=== PATIENT | female | born 1970 | race Caucasian/White ===

== ENCOUNTER 2018-03-19 18:20 | Inpatient (IN) | payer SELFPAY ==
[2018-03-19 18:36] VITALS: BMI 29.9
[2018-03-19] MEDS ORDERED: FAMOTIDINE 20 MG/50 ML IVPB 20 MG/50 ML MG IVPB ONE ×2 (18:38)
--- NOTE | 2018-03-19 18:45 | PDOC ---
Rapid Medical Evaluation Chief Complaint: Nausea/Vomiting Time Seen by Provider: 03/19/18 18:35 Medical Evaluation: Allergies Allergy/AdvReac Type Severity Reaction Status Date / Time aspirin Allergy Severe Swelling Verified 03/19/18 18:32 Vital Signs Temp Pulse Resp BP Pulse Ox 99.8 F H 73 18 163/90 100 03/19/18 18:32 03/19/18 18:32 03/19/18 18:32 03/19/18 18:32 03/19/18 18:32 03/19/18 18:41 I have performed a brief in-person evaluation of this patient. The patient presents with a chief complaint of: epigastric pain with nausea and vomiting for 3 days after eating in a restaurant. Patient also with diarrhea and weakness Pertinent physical exam findings: abd: moderate epigastric tenderness . no rebound or guarding I have ordered the following: CBC/CMP, HCG. ABD CT. pepcid IV The patient will proceed to the ED for further evaluation. Discharge Disposition - Diagnosis Abdominal pain Qualifiers: Abdominal location: epigastric Qualified Code(s): R10.13 - Epigastric pain - Referrals - Patient Instructions - Post Discharge Activity
[2018-03-19 19:03] LABS: BASO % 0.1 % (0-2.0); HEMATOCRIT 41.8 % (32.4-45.2); HEMOGLOBIN 13.1 GM/dL (10.7-15.3); LYMPH % 8.6 % (8-40); MCH 26.2 pg (25.7-33.7); MCHC 31.3 g/dl (32.0-36.0); MEAN CELL VOLUME 83.8 fl (80-96); MEAN PLT VOLUME 10.2 fl (7.5-11.1); MONO % 4.3 % (3.8-10.2); PLATELET COUNT 345 K/MM3 (134-434); RBC 4.99 M/mm3 (3.60-5.2); RDW 15.7 % (11.6-15.6); WHITE BLOOD COUNT 15.7 K/mm3 (4.0-10.0)
[2018-03-19 19:10] LABS: URINE APPEARANCE CLOUDY; URINE BILIRUBIN NEGATIVE (<2.0 mg/dL); URINE COLOR YELLOW; URINE GLUCOSE (UA) NEGATIVE (NEGATIVE); URINE KETONE 1+ (NEGATIVE); URINE LEUK ESTERASE NEGATIVE (NEGATIVE); URINE NITRITE NEGATIVE (NEGATIVE); URINE PROTEIN 1+ (NEGATIVE); URINE UROBILINOGEN NEGATIVE mg/dL (0.2-1.0)
[2018-03-19 19:30] LABS: EPI CELLS RARE /HPF (FEW); URINE MUCUS MANY
[2018-03-19 19:32] LABS: ALBUMIN 4.2 g/dl (3.4-5.0); ALK PHOS 72 U/L (45-117); ANION GAP 6 MMOL/L (8-16); BILIRUBIN,TOTAL 0.4 mg/dL (0.2-1); BLOOD UREA NITROGEN 14 mg/dL (7-18); CALCIUM 9.9 mg/dL (8.5-10.1); CHLORIDE 105 mmol/L (98-107); CO2 26 mmol/L (21-32); CREATININE 0.6 mg/dL (0.55-1.3); GLUCOSE,RANDOM 114 mg/dL (74-106); POTASSIUM 4.3 mmol/L (3.5-5.1); SGOT/AST 11 U/L (15-37); SGPT/ALT 19 U/L (13-61); SODIUM 137 mmol/L (136-145); TOT PROT 7.8 g/dl (6.4-8.2)
[2018-03-19] MEDS ORDERED: SODIUM CHLORIDE 0.9% 500 ML INFUS.BAG IV ONE (19:49)
[2018-03-19] MEDS ORDERED: ACETAMINOPHEN 325 MG TABLET (FP) PO ONE (19:49)
[2018-03-19 20:00] LABS: LIPASE 119 U/L (73-393)
[2018-03-19] MEDS ORDERED: ONDANSETRON 4 MG/2 ML VIAL IVPUSH ONE (20:08)
--- NOTE | 2018-03-19 20:08 | PDOC ---
History of Present Illness - General Chief Complaint: Nausea/Vomiting Stated Complaint: SICK Time Seen by Provider: 03/19/18 18:35 - History of Present Illness Initial Comments: 03/19/18 20:08 CHIEF COMPLAINT: abdominal pain, vomiting, diarrhea HISTORY OF PRESENT ILLNESS: 47 yo F with no PMH presents to ED with abdominal pain, nausea, vomiting, and diarrhea x 3 days after "eating at a restaurant." Patient reports that the pain is a "stabbing pain" to the epigastrum and is associated with vomiting (approximately 7-8 times daily after each time she eats ), with approximately 4 episodes of diarrhea daily. patient denies any hx of constipation or any rectal bleeding. Denies fever or chills. No recent travel or sick contacts. PAST MEDICAL HISTORY: Denies past medical history FAMILY HISTORY: Denies SOCIAL HISTORY: Denies tobacco, alcohol, illicit drug use. SURGICAL HISTORY: Denies ALLERGIES: aspirin REVIEW OF SYSTEMS General/Constitutional: Denies fever or chills. Denies weakness, weight change. HEENT: Denies change in vision. Denies ear pain or discharge. Denies sore throat. Cardiovascular: Denies chest pain or shortness of breath. Respiratory: Denies cough, wheezing, or hemoptysis. Gastrointestinal: Vomiting and diarrhea x 2 days. Denies constipation or rectal bleeding. Genitourinary: Denies dysuria, frequency, or change in urination. Musculoskeletal: Denies joint or muscle swelling or pain. Denies neck or back pain. Skin and breasts: Denies rash or easy bruising. Neurologic: Denies headache, vertigo, loss of consciousness, or loss of sensation. Psychiatric: Denies depression or anxiety. PHYSICAL EXAM General Appearance: Well-appearing, appropriately dressed. No apparent distress. HEENT: EOMI, PERRLA. No conjunctival pallor. No photophobia, scleral icterus. Respiratory/Chest: Lungs CTAB. Cardiovascular: RRR. S1, S2. Vascular Pulses: Dorsalis-Pedis (R): 2+, Dorsalis-Pedis (L): 2+ Gastrointestinal/Abdominal: Mild epigastric tenderness on palpation, moderate RLQ TTP. Normal bowel sounds. Abdomen soft, non-distended. No tenderness or rebound tenderness. No organomegaly, pulsatile mass, guarding, hernia, hepatomegaly, splenomegaly. Musculoskeletal/Extremities: Normal inspection. FROM of all extremities, normal capillary refill. Pelvis Stable. No CVA tenderness. No tenderness to extremities, pedal edema, swelling, erythema or deformity. Integumentary: Appropriate color, dry, warm. No cyanosis, erythema, jaundice or rash Neurologic: shank turner II-XII intact. Fully oriented, alert. Appropriate mood/affect. Motor strength 5/5. No appreciable EOM palsy, facial droop or sensory deficit. Past History - Past Medical History Allergies/Adverse Reactions: Allergies Allergy/AdvReac Type Severity Reaction Status Date / Time aspirin Allergy Severe Swelling Verified 03/19/18 18:32 Home Medications: Ambulatory Orders Nitrofurantoin Monohyd/M-Cryst [Macrobid -] 100 mg PO BID #14 capsule 03/19/18 Ondansetron HCl [Zofran] 4 mg PO QID PRN #30 tablet 03/19/18 COPD: No - Immunization History Immunization Up to Date: Yes - Suicide/Smoking/Psychosocial Hx Smoking History: Never smoked Hx Alcohol Use: No Drug/Substance Use Hx: No *Physical Exam - Vital Signs Last Vital Signs Temp Pulse Resp BP Pulse Ox 99.8 F H 73 18 163/90 100 03/19/18 18:32 03/19/18 18:32 03/19/18 18:32 03/19/18 18:32 03/19/18 18:32 ED Treatment Course - LABORATORY CBC & Chemistry Diagram: 03/19/18 18:36 03/19/18 18:36 - ADDITIONAL ORDERS Additional order review: Laboratory Results 03/19/18 03/19/18 03/19/18 18:36 18:36 18:36 Sodium 137 Potassium 4.3 Chloride 105 Carbon Dioxide 26 Anion Gap 6 L BUN 14 Creatinine 0.6 Creat Clearance w eGFR > 60 Random Glucose 114 H Calcium 9.9 Total Bilirubin 0.4 AST 11 L ALT 19 Alkaline Phosphatase 72 Total Protein 7.8 Albumin 4.2 Lipase 119 Urine Color Yellow Urine Appearance Cloudy Urine pH 5.0 Ur Specific [place] 1.025 Urine Protein 1+ H Urine Glucose (UA) Negative Urine Ketones 1+ H Urine Blood Negative Urine Nitrite Negative Urine Bilirubin Negative Urine Urobilinogen Negative Ur Leukocyte Esterase Negative Urine WBC (Auto) 12 Urine RBC (Auto) 2 Ur Epithelial Cells Rare Urine Mucus Many Urine HCG, Qual Negative 03/19/18 18:36 RBC 4.99 MCV 83.8 MCHC 31.3 L RDW 15.7 H MPV 10.2 Neutrophils % 87.0 H Lymphocytes % 8.6 Monocytes % 4.3 Eosinophils % 0.0 Basophils % 0.1 - Medications Given in the ED: ED Medications Discontinued Medications Generic Name Dose Route Start Last Admin Trade Name Freq PRN Reason Stop Dose Admin Famotidine/Sodium Chloride 20 mg in 50 mls @ 100 mls/hr 03/19/18 18:38 18:50 Pepcid 20 Mg Premixed Ivpb - IVPB 03/19/18 19:07 100 mls/hr ONCE ONE Administration Medical Decision Making - Medical Decision Making 03/19/18 21:18 47 yo F with no PMH presents to ED with abdominal pain, nausea, vomiting, and diarrhea x 3 days after "eating at a restaurant." [facility], lipase added labs unremarkable patient awaiting CT A&P with contrast ordered in [facility]. will give meds for pain control and low grade fever 03/19/18 23:12 CT suggestive of R inguinal hernia with strangulation and SBO. Surgery consult placed, awaiting CB. Patient does not have PCP, will admit to hospitalist. *DC/Admit/Observation/Transfer Diagnosis at time of Disposition: Small bowel obstruction, Inguinal hernia of right side with obstruction Abdominal pain Qualifiers: Abdominal location: epigastric Qualified Code(s): R10.13 - Epigastric pain - Discharge Dispostion Decision to Admit order: Yes - Prescriptions Prescriptions: Nitrofurantoin Monohyd/M-Cryst [Macrobid -] 100 mg PO BID #14 capsule Ondansetron HCl [Zofran] 4 mg PO QID PRN #30 tablet PRN Reason: Nausea And/Or Vomiting - Referrals - Patient Instructions - Post Discharge Activity
[2018-03-19] MEDS ORDERED: DICYCLOMINE HCL 10 MG/5 ML PO ONE (20:44)
[2018-03-19] MEDS ORDERED: ACETAMINOPHEN 500 MG TABLET (FP) PO ONE (20:47)
--- NOTE | 2018-03-19 21:00 | PDOC ---
*Physical Exam - Vital Signs Last Vital Signs Temp Pulse Resp BP Pulse Ox 99.8 F H 73 18 163/90 100 03/19/18 18:32 03/19/18 18:32 03/19/18 18:32 03/19/18 18:32 03/19/18 18:32 ED Treatment Course - LABORATORY CBC & Chemistry Diagram: 03/19/18 18:36 03/19/18 18:36 - ADDITIONAL ORDERS Additional order review: Laboratory Results 03/19/18 03/19/18 03/19/18 18:36 18:36 18:36 Sodium 137 Potassium 4.3 Chloride 105 Carbon Dioxide 26 Anion Gap 6 L BUN 14 Creatinine 0.6 Creat Clearance w eGFR > 60 Random Glucose 114 H Calcium 9.9 Total Bilirubin 0.4 AST 11 L ALT 19 Alkaline Phosphatase 72 Total Protein 7.8 Albumin 4.2 Lipase 119 Urine Color Yellow Urine Appearance Cloudy Urine pH 5.0 Ur Specific [place] 1.025 Urine Protein 1+ H Urine Glucose (UA) Negative Urine Ketones 1+ H Urine Blood Negative Urine Nitrite Negative Urine Bilirubin Negative Urine Urobilinogen Negative Ur Leukocyte Esterase Negative Urine WBC (Auto) 12 Urine RBC (Auto) 2 Ur Epithelial Cells Rare Urine Mucus Many Urine HCG, Qual Negative 03/19/18 18:36 RBC 4.99 MCV 83.8 MCHC 31.3 L RDW 15.7 H MPV 10.2 Neutrophils % 87.0 H Lymphocytes % 8.6 Monocytes % 4.3 Eosinophils % 0.0 Basophils % 0.1 - Medications Given in the ED: ED Medications Discontinued Medications Generic Name Dose Route Start Last Admin Trade Name Freq PRN Reason Stop Dose Admin Famotidine/Sodium Chloride 20 mg in 50 mls @ 100 mls/hr 03/19/18 18:38 18:50 Pepcid 20 Mg Premixed Ivpb - IVPB 03/19/18 19:07 100 mls/hr ONCE ONE Administration Medical Decision Making - Medical Decision Making 03/19/18 21:00 Pt seen by the Advanced Practice Provider under my direct supervision Pt interviewed and examined Ancillary studies reviewed I agree with plan as outlined by the Advanced Practice Provider CURLY Anna *DC/Admit/Observation/Transfer Diagnosis at time of Disposition: Abdominal pain Qualifiers: Abdominal location: epigastric Qualified Code(s): R10.13 - Epigastric pain - Prescriptions Prescriptions: Nitrofurantoin Monohyd/M-Cryst [Macrobid -] 100 mg PO BID #14 capsule Ondansetron HCl [Zofran] 4 mg PO QID PRN #30 tablet PRN Reason: Nausea And/Or Vomiting - Referrals - Patient Instructions - Post Discharge Activity
[2018-03-19] MEDS ORDERED: ACETAMINOPHEN 325 MG TABLET (FP) ONE (21:34)
[2018-03-19] MEDS ORDERED: DICYCLOMINE HCL 10 MG CAPSULE ONE (21:34)
[2018-03-19] MEDS ORDERED: ONDANSETRON 4 MG/2 ML VIAL ONE (21:34)
--- NOTE | 2018-03-19 23:57 | CONSULT ---
Consult Consult Specialty:: General Surgery Reason for Consultation:: Strangulated RIH - History of Present Illness Chief Complaint: abdominal pain and vomiting History of Present Illness: 47yo female no significant PMH presents to ED with abdominal pain, nausea, vomiting, and diarrhea x 3 days after "eating at a restaurant." Patient reports that the pain is a "stabbing pain" to the epigastrum and is associated with vomiting (approximately 7-8 times daily after each time she eats), with approximately 4 episodes of diarrhea daily. patient denies any hx of constipation or any rectal bleeding. Denies fever or chills. no previous episodes. CT scan showed strangulated right inguinal hernia. We were called to assess. - History Source History Provided By: Patient, Medical Record Limitations to Obtaining History: No Limitations - Alcohol/Substance Use Hx Alcohol Use: No - Smoking History Smoking history: Never smoked Home Medications - Allergies Allergies/Adverse Reactions: Allergies Allergy/AdvReac Type Severity Reaction Status Date / Time aspirin Allergy Severe Swelling Verified 03/19/18 18:32 - Home Medications Home Medications: Ambulatory Orders Nitrofurantoin Monohyd/M-Cryst [Macrobid -] 100 mg PO BID #14 capsule 03/19/18 Ondansetron HCl [Zofran] 4 mg PO QID PRN #30 tablet 03/19/18 Review of Systems - Review of Systems Constitutional: denies: Chills, Fever Eyes: denies: Blind Spots, Recent Change in Vision HENT: denies: Difficult Swallowing, Throat Pain Neck: denies: Decreased ROM, Lumps, Pain on Movement Cardiovascular: denies: Chest Pain, Palpitations Respiratory: denies: Cough, SOB Gastrointestinal: reports: Abdominal Pain, Nausea, Vomiting. denies: Constipation, Diarrhea Genitourinary: denies: Discharge, Dysuria Breasts: reports: No Symptoms Reported. denies: Pain Musculoskeletal: denies: Muscle Cramps, Muscle Weakness Integumentary: denies: Eczema, Erythema, Lesions, Lump Neurological: denies: Seizure, Syncope Endocrine: denies: Unexplained Weight Gain, Unexplained Weight Loss Hematology/Lymphatic: denies: Easily Bruised, Excessive Bleeding Psychiatric: denies: Anxiety, Depression Physical Exam Vital Signs: Vital Signs Temperature 99.8 F H 03/19/18 18:32 Pulse Rate 73 03/19/18 18:32 Respiratory Rate 18 03/19/18 18:32 Blood Pressure 163/90 03/19/18 18:32 O2 Sat by Pulse Oximetry (%) 100 03/19/18 18:32 Constitutional: Yes: Well Nourished, No Distress, Calm Eyes: Yes: Conjunctiva Clear, EOM Intact HENT: Yes: Atraumatic, Normocephalic Neck: Yes: Supple, Trachea Midline Cardiovascular: Yes: Regular Rate and Rhythm, S1, S2 Respiratory: Yes: Regular, CTA Bilaterally Gastrointestinal: Yes: Normal Bowel Sounds, Soft, Distention, Hernia (RIH), Tenderness (right inhuinal area). No: Tenderness, Epigastrium, Tenderness, Rebound ...Rectal Exam: Yes: Deferred Renal/: No: CVA Tenderness - Left, CVA Tenderness - Right Musculoskeletal: No: Muscle Pain, Muscle Weakness Extremities: No: Cool, Cyanosis Edema: No Peripheral Pulses WNL: Yes Integumentary: No: Jaundice, Petechiae, Pressure Ulcer, Rash Neurological: Yes: Alert, Oriented Psychiatric: Yes: Alert, Oriented Labs: CBC, BMP 03/19/18 18:36 03/19/18 18:36 Imaging - Results Cat Scan: Report Reviewed, Image Reviewed (stangulated right inguinal hernia, small intestines) Problem List - Problems (1) Strangulated inguinal hernia Assessment/Plan: 47 yo female with right inguinal hernia stangulated NPO and IVF hydration IV antibiotics OR for Exp Lap, possible bowel ressection, possible ostomy Discussed with patient risks, benefits and alternatives of aforementioned procedure, including but not limited to bleeding, infection, injury to adjacent structures, leak or injury, intraabdominal abscess, incisional hernia, need for further procedures, ; alternatives include antibiotics, delayed or no surgery - risks of this include failure of nonoperative therapy, perforation, sepsis, recurrence, . Patient desires to proceed with operation - will take to OR for above. Informed consent signed for same. Thank you for the opportunity to participate in the care of this patient. Code(s): K40.30 - UNIL INGUINAL HERNIA, W OBST, W/O GANGR, NOT SPCF RECUR (2) Abdominal pain Code(s): R10.9 - UNSPECIFIED ABDOMINAL PAIN Qualifiers: Abdominal location: epigastric Qualified Code(s): R10.13 - Epigastric pain (3) Inguinal hernia of right side with obstruction Code(s): K40.30 - UNIL INGUINAL HERNIA, W OBST, W/O GANGR, NOT SPCF RECUR (4) Small bowel obstruction Code(s): K56.609 - UNSP INTESTNL OBST, UNSP TO PARTIAL VERSUS COMPLETE OBST
[2018-03-20] MEDS ORDERED: ETOMIDATE 20 MG/10 ML AMPUL IVPUSH ONE (00:22)
[2018-03-20] MEDS ORDERED: fentaNYL CITRATE 250 MCG/5 ML VIAL ONE (00:22)
[2018-03-20] MEDS ORDERED: LIDOCAINE HCL/PF 2% SDV 5ML VIAL ONE (00:22)
[2018-03-20] MEDS ORDERED: SUCCINYLCHOLINE CHLORIDE 200 MG/10 ML VIAL ONE (00:22)
[2018-03-20] MEDS ORDERED: DEXAMETHASONE SOD PHOSPHATE 4 MG/1 ML VIAL ONE (00:22)
[2018-03-20] MEDS ORDERED: PROPOFOL 20 ML ONE (00:22)
[2018-03-20] MEDS ORDERED: ROCURONIUM BROMIDE 50 MG/5 ML VIAL ONE (00:22)
[2018-03-20] MEDS ORDERED: DESFLURANE GAS 240 ML BOTTLE IH ONE (00:28)
[2018-03-20] MEDS ORDERED: CEFOXITIN SODIUM 2 GM in DEXTROSE 5%-WATER - 100 ML IVPB SCH ×3 (02:00→10:00)
[2018-03-20] MEDS ORDERED: GLYCOPYRROLATE 0.2 MG/1 ML VIAL ONE (02:04)
[2018-03-20] MEDS ORDERED: KETOROLAC TROMETHAMINE 30 MG/1 ML VIAL ONE (02:04)
--- NOTE | 2018-03-20 02:44 | HP ---
CHIEF COMPLAINT: abdominal pain HISTORY OF PRESENT ILLNESS: 47 year old female with no past medical history presents to the hospital for 2 days of abdominal pain. She reports that she has two areas of pain = located in the epigastric region as well as the right lower quadrant. She states that the pain started after eating rice at a restaurant. Denies knowing if anyone else was sick around her after eating at that same restaurant. Reports associated subjective fevers for the past two days as well as non-bloody diarrhea. Denies chest pain, shortness of breath, nausea, vomiting, diarrhea, fevers, chills. Denies ever having a colonoscopy in the past. ER course was notable for: (1) WBC 15.9 (2) (3) Recent Travel: denies PAST MEDICAL HISTORY: denies PAST SURGICAL HISTORY: denies Social History: Smoking: denies Alcohol: denies Drugs: denies Family History: -Mother: diabetes mellitus Allergies aspirin Allergy (Severe, Verified 03/19/18 18:32) Swelling HOME MEDICATIONS: Home Medications Medication Instructions Recorded Nitrofurantoin Monohyd/M-Cryst 100 mg PO BID #14 capsule 03/19/18 [Macrobid -] Ondansetron HCl [Zofran] 4 mg PO QID PRN #30 tablet 03/19/18 REVIEW OF SYSTEMS CONSTITUTIONAL: Absent: fever, chills, diaphoresis, generalized weakness, malaise, loss of appetite, weight change HEENT: Absent: rhinorrhea, nasal congestion, throat pain, throat swelling, difficulty swallowing, mouth swelling, ear pain, eye pain, visual changes CARDIOVASCULAR: Absent: chest pain, syncope, palpitations, irregular heart rate, lightheadedness , peripheral edema RESPIRATORY: Absent: cough, shortness of breath, dyspnea with exertion, orthopnea, wheezing, stridor, hemoptysis GASTROINTESTINAL: abdominal pain, Absent: abdominal distension, nausea, vomiting, diarrhea, constipation, melena , hematochezia GENITOURINARY: Absent: dysuria, frequency, urgency, hesitancy, hematuria, flank pain, genital pain MUSCULOSKELETAL: Absent: myalgia, arthralgia, joint swelling, back pain, neck pain SKIN: Absent: rash, itching, pallor HEMATOLOGIC/IMMUNOLOGIC: Absent: easy bleeding, easy bruising, lymphadenopathy, frequent infections ENDOCRINE: Absent: unexplained weight gain, unexplained weight loss, heat intolerance, cold intolerance NEUROLOGIC: Absent: headache, focal weakness or paresthesias, dizziness, unsteady gait, seizure, mental status changes, bladder or bowel incontinence PSYCHIATRIC: Absent: anxiety, depression, suicidal or homicidal ideation, hallucinations. PHYSICAL EXAMINATION Vital Signs - 24 hr 03/19/18 03/20/18 18:32 00:46 Temperature 99.8 F H 99.8 F H Pulse Rate 73 Pulse Rate [ 74 Apical] Respiratory 18 18 Rate Blood Pressure 163/90 Blood Pressure 142/86 [Left Arm] O2 Sat by Pulse 100 100 Oximetry (%) GENERAL: A&Ox3, no acute distress EYES: PERRLA, EOMI ENT: Moist mucus membranes NECK: No JVD LUNGS: CTA, no wheezes HEART: RRR, no murmurs ABDOMEN: Soft, tender to palpation in the RLQ, bowel sounds present but slightly diminished on exam MUSCULOSKELETAL: No CVA Tenderness EXTREMITIES: 2+ pulses, no edema. NEUROLOGICAL: Cranial nerves II-XII intact. Laboratory Results - last 24 hr 03/19/18 03/19/18 03/19/18 18:36 18:36 18:36 WBC 15.7 H RBC 4.99 Hgb 13.1 Hct 41.8 MCV 83.8 MCH 26.2 MCHC 31.3 L RDW 15.7 H Plt Count 345 MPV 10.2 Absolute Neuts (auto) 13.7 H Neutrophils % 87.0 H Lymphocytes % 8.6 Monocytes % 4.3 Eosinophils % 0.0 Basophils % 0.1 Nucleated RBC % 0 Sodium 137 Potassium 4.3 Chloride 105 Carbon Dioxide 26 Anion Gap 6 L BUN 14 Creatinine 0.6 Creat Clearance w eGFR > 60 Random Glucose 114 H Lactic Acid Calcium 9.9 Total Bilirubin 0.4 AST 11 L ALT 19 Alkaline Phosphatase 72 Total Protein 7.8 Albumin 4.2 Lipase 119 Urine Color Urine Appearance Urine pH Ur Specific [place] Urine Protein Urine Glucose (UA) Urine Ketones Urine Blood Urine Nitrite Urine Bilirubin Urine Urobilinogen Ur Leukocyte Esterase Urine WBC (Auto) Urine RBC (Auto) Ur Epithelial Cells Urine Mucus Urine HCG, Qual Negative 03/19/18 03/20/18 18:36 00:36 WBC RBC Hgb Hct MCV MCH MCHC RDW Plt Count MPV Absolute Neuts (auto) Neutrophils % Lymphocytes % Monocytes % Eosinophils % Basophils % Nucleated RBC % Sodium Potassium Chloride Carbon Dioxide Anion Gap BUN Creatinine Creat Clearance w eGFR Random Glucose Lactic Acid 1.1 Calcium Total Bilirubin AST ALT Alkaline Phosphatase Total Protein Albumin Lipase Urine Color Yellow Urine Appearance Cloudy Urine pH 5.0 Ur Specific [place] 1.025 Urine Protein 1+ H Urine Glucose (UA) Negative Urine Ketones 1+ H Urine Blood Negative Urine Nitrite Negative Urine Bilirubin Negative Urine Urobilinogen Negative Ur Leukocyte Esterase Negative Urine WBC (Auto) 12 Urine RBC (Auto) 2 Ur Epithelial Cells Rare Urine Mucus Many Urine HCG, Qual ASSESSMENT/PLAN: 47 year old female with no past medical history presents to the hospital for 2 days of abdominal pain and admitted for the treatment of incarcerated and strangulated R inguinal hernia #Strangulated Inguinal Hernia: patient looks clinically benign, but CT findings reveal strangulation of bowel within right sided inguinal hernia -Dr. Hogan consulted, discussed case -patient will go to OR for emergent Exp Lap, possible bowel reesection, possible ostomy -pre-op labs -NPO -will revaluate patient after surgery -accurate I's/O's -encourage incentive spirometry after procedure #FEN -lactated ringers at 100cc/hr -lytes normal -NPO for procedure #Prophylaxis -SCDs #Disposition -admit med surg -patient will be going to surgery - will examine patient after procedure Visit type - Emergency Visit Emergency Visit: Yes ED Registration Date: 03/20/18 Care time: The patient presented to the Emergency Department on the above date and was hospitalized for further evaluation of their emergent condition. - New Patient This patient is new to me today: Yes Date on this admission: 03/20/18 - Critical Care Critical Care patient: No
--- NOTE | 2018-03-20 02:54 | OP ---
Operative Note - Note: Operative Date: 03/20/18 Pre-Operative Diagnosis: strangulated right inguinal hernia Operation: Exploratory lapatotomy, small bowel ressection, primary right inguinal hernia repair Findings: strangulated segment of small intestines. right inguinal hernia defect 2 cm, closed primarily with proline Post-Operative Diagnosis: Same as Pre-op Surgeon: Romario Hogan Anesthesiologist/ITALIAN LECTURER: Mynor Mckeon Anesthesia: General Estimated Blood Loss (mls): 20 Drains & Tubes with Location: NGT (450ml duing case) Drains, Volume Out (mls): 400 ([place] (Removed)) Fluid Volume Replaced (mls): 1,700 Operative Report Dictated: Yes
[2018-03-20] MEDS ORDERED: ONDANSETRON 4 MG/2 ML VIAL IVPUSH PRN ×2 (02:58)
[2018-03-20] MEDS ORDERED: PROMETHAZINE HCL 25 MG/1 ML VIAL IVPB PRN (02:58)
[2018-03-20] MEDS ORDERED: PROMETHAZINE HCL 25 MG/1 ML VIAL IVPUSH PRN (02:58)
[2018-03-20] MEDS ORDERED: HYDROmorphone *PCA* 10MG/50ML DISP.SYRIN PCA SCH (03:00)
[2018-03-20] MEDS: ACETAMINOPHEN 1000 MG/100 ML VIAL (NON FORMULARY) IVPB PRN (03:13)
[2018-03-20] MEDS: LACTATED RINGERS SOLUTION 1,000 ML IV SCH ×2 (03:20→21:05)
--- NOTE | 2018-03-20 03:55 | PN ---
Teaching Attending Note Name of Resident: Franklin Artis ATTENDING PHYSICIAN STATEMENT I saw and evaluated the patient. Chart, data, imaging reviewed. I reviewed the resident's note and discussed the case with the resident. I agree with the resident's findings and plan as documented. SUBJECTIVE: 47 year old female with no past medical history presents to the hospital for 2 days of abdominal pain associated with diarrhea. Was eating fried rice and pork prior to its onset. Some nausea and vomiting as well. Denied fevers. No one in family with same symptoms. OBJECTIVE: Last Vital Signs Temp Pulse Resp BP Pulse Ox 98.9 F 65 22 H 141/84 98 03/20/18 02:50 03/20/18 03:15 03/20/18 03:15 03/20/18 03:15 03/20/18 03:15 General- nad, nontoxic appearing heent- at, nc neck supple cv- s1+s2+rrr abdomen soft, no masses, right lower quadrant tenderness Ext -no pedal edema Abnormal Lab Results 03/19/18 03/19/18 03/19/18 18:36 18:36 18:36 WBC 15.7 H MCHC 31.3 L RDW 15.7 H Absolute Neuts (auto) 13.7 H Neutrophils % 87.0 H Anion Gap 6 L Random Glucose 114 H AST 11 L Urine Protein 1+ H Urine Ketones 1+ H CT of abd/pelvis reviewed- right sided strangulated inguinal hernia ASSESSMENT AND PLAN: #Strangulated Right Inguinal Hernia CT findings reveal strangulation of bowel within right sided inguinal hernia, Small bowel obstruction -Dr. Hogan consulted, discussed case -patient will go to OR emergently -NPO -send lactate -type and screen -IV fluid hydration -morphine PRN for pain control DVT ppx -scds
[2018-03-20] MEDS ORDERED: ONDANSETRON 4 MG/2 ML VIAL ONE (04:02)
[2018-03-20] MEDS: ONDANSETRON 4 MG/2 ML VIAL IVPB SCH ×3 (04:05→17:36)
[2018-03-20] MEDS: HYDROmorphone *PCA* 10MG/50ML DISP.SYRIN PCA SCH (05:26)
--- NOTE | 2018-03-20 08:34 | HOSP ---
Subjective - Review of Symptoms Subjective: c/o diffuse abdominal pain that is controlled with MANAGING EDITOR pump. denies CP, sob, fever, chills, N/V/C/D. no flatus or bleching Current Medications Generic Name Dose Route Start Last Admin Trade Name Freq PRN Reason Stop Dose Admin Acetaminophen 1,000 mg 03/20/18 03:00 03/20/18 03:13 Ofirmev Injection - IVPB 1,000 mg Q6H PRN Administration PAIN LEVEL 4 - 6 Fentanyl 50 mcg 03/20/18 02:58 Sublimaze Injection - IVPUSH 03/21/18 03:00 [id number] PRN PAIN-PACU ORDER X 4 DOSES ONLY Hydromorphone HCl 10 mg 03/20/18 03:59 03/20/18 05:26 Dilaudid Graduate Civil Engineer - MANAGING EDITOR 03/27/18 02:59 Not Given MANAGING EDITOR SCARLET Protocol Lactated Ringer's 1,000 mls @ 125 mls/hr 03/20/18 03:00 03/20/18 03:20 Lactated Ringers Solution IV 100 mls ASDIR SCARLET Administration Cefoxitin Sodium 2 gm/ 100 mls @ 200 mls/hr 03/20/18 10:00 Dextrose IVPB 03/21/18 02:59 Q8H-IV SCARLET Protocol Ondansetron HCl 8 mg 03/20/18 03:00 03/20/18 04:05 Zofran Injection IVPB 8 mg Q8H-IV SCARLET Administration Ondansetron HCl 4 mg 03/20/18 02:58 Zofran Injection IVPUSH 03/21/18 03:00 Q6H PRN NAUSEA AND/OR VOMITING Ondansetron HCl 4 mg 03/20/18 02:58 Zofran Injection IVPUSH 03/21/18 03:00 Q4H PRN NAUSEA AND/OR VOMITING Promethazine HCl 12.5 mg 03/20/18 02:58 Phenergan Injection - IVPUSH 03/21/18 03:00 Q6H PRN NAUSEA-FOR RESCUE AFTER 15 MIN Promethazine HCl 12.5 mg 03/20/18 02:58 Phenergan Injection - IVPB Q6H PRN NAUSEA AND/OR VOMITING Last Vital Signs Temp Pulse Resp BP Pulse Ox 98.3 F 78 18 119/66 98 03/20/18 05:31 03/20/18 05:31 03/20/18 05:31 03/20/18 05:31 03/20/18 05:31 General NAD CV S1 S2 RRR no murmur/rub/gallop Lungs CTA anteriorly ABdomen soft slight tender, abdominal packing down the center of the abdomen no BS Extremities no edema CBCD WBC 15.7 K/mm3 (4.0-10.0) H 03/19/18 18:36 RBC 4.99 M/mm3 (3.60-5.2) 03/19/18 18:36 Hgb 13.1 GM/dL (10.7-15.3) 03/19/18 18:36 Hct 41.8 % (32.4-45.2) 03/19/18 18:36 MCV 83.8 fl (80-96) 03/19/18 18:36 MCHC 31.3 g/dl (32.0-36.0) L 03/19/18 18:36 RDW 15.7 % (11.6-15.6) H 03/19/18 18:36 Plt Count 345 K/MM3 (134-434) 03/19/18 18:36 MPV 10.2 fl (7.5-11.1) 03/19/18 18:36 CMP Sodium 137 mmol/L (136-145) 03/19/18 18:36 Potassium 4.3 mmol/L (3.5-5.1) 03/19/18 18:36 Chloride 105 mmol/L (98-107) 03/19/18 18:36 Carbon Dioxide 26 mmol/L (21-32) 03/19/18 18:36 Anion Gap 6 MMOL/L (8-16) L 03/19/18 18:36 BUN 14 mg/dL (7-18) 03/19/18 18:36 Creatinine 0.6 mg/dL (0.55-1.3) 03/19/18 18:36 Creat Clearance w eGFR > 60 (>60) 03/19/18 18:36 Calcium 9.9 mg/dL (8.5-10.1) 03/19/18 18:36 Total Bilirubin 0.4 mg/dL (0.2-1) 03/19/18 18:36 AST 11 U/L (15-37) L 03/19/18 18:36 ALT 19 U/L (13-61) 03/19/18 18:36 Alkaline Phosphatase 72 U/L (45-117) 03/19/18 18:36 Total Protein 7.8 g/dl (6.4-8.2) 03/19/18 18:36 Albumin 4.2 g/dl (3.4-5.0) 03/19/18 18:36 A/P 47yo F wtih PMH PMH obesity presented to the ER wt abdominal pain x2 days and found to have strangulated inguinal hernia 1. Strangulated inguinal hernia- s/p exlap with small bowel resection and R inguinal hernia repair. steph-operative ABx. NGT to suction, NPO, IVF, pain control with MANAGING EDITOR pump. further recommendations per surgery. 2. Obesity- BMI 30. discussed lifestyle modifications. diet and exercise. 3. DVT ppx- will start hep sq Physical Examination Vital Signs: Vital Signs Temperature 98.3 F 03/20/18 05:31 Pulse Rate 78 03/20/18 05:31 Respiratory Rate 18 03/20/18 05:31 Blood Pressure 119/66 03/20/18 05:31 O2 Sat by Pulse Oximetry (%) 98 03/20/18 05:31
[2018-03-20 08:36] LABS: BASO % 0.1 % (0-2.0); HEMATOCRIT 33.5 % (32.4-45.2); HEMOGLOBIN 10.4 GM/dL (10.7-15.3); LYMPH % 4.5 % (8-40); MCHC 31.1 g/dl (32.0-36.0); MEAN CELL VOLUME 83.8 fl (80-96); MEAN PLT VOLUME 10.3 fl (7.5-11.1); NEUT % 87.4 % (42.8-82.8); RDW 15.6 % (11.6-15.6); WHITE BLOOD COUNT 19.4 K/mm3 (4.0-10.0)
[2018-03-20 09:11] LABS: ALBUMIN 2.9 g/dl (3.4-5.0); ALK PHOS 54 U/L (45-117); ANION GAP 9 MMOL/L (8-16); BILIRUBIN,TOTAL 0.5 mg/dL (0.2-1); BLOOD UREA NITROGEN 13 mg/dL (7-18); CALCIUM 7.9 mg/dL (8.5-10.1); CHLORIDE 108 mmol/L (98-107); CO2 23 mmol/L (21-32); CREATININE 0.5 mg/dL (0.55-1.3); GLUCOSE,RANDOM 114 mg/dL (74-106); POTASSIUM 4.1 mmol/L (3.5-5.1); SGOT/AST 43 U/L (15-37); SGPT/ALT 29 U/L (13-61); SODIUM 140 mmol/L (136-145); TOT PROT 5.6 g/dl (6.4-8.2)
[2018-03-20] MEDS ORDERED: PT OWN MED DRAWER 7, Y5N ONE ×2 (10:12→17:33)
[2018-03-20] MEDS: CEFOXITIN SODIUM 2 GM in DEXTROSE 5%-WATER - 100 ML IVPB SCH ×2 (10:35→17:59)
[2018-03-20] MEDS: HEPARIN NA (PORCINE) 5,000 UNITS/ML 1ML VIAL SQ SCH ×2 (14:22→21:05)
[2018-03-21] MEDS: HYDROmorphone *PCA* 10MG/50ML DISP.SYRIN PCA SCH ×2 (00:37→07:32)
[2018-03-21] MEDS: ONDANSETRON 4 MG/2 ML VIAL IVPB SCH ×3 (01:11→18:07)
[2018-03-21] MEDS: CEFOXITIN SODIUM 2 GM in DEXTROSE 5%-WATER - 100 ML IVPB SCH (01:38)
[2018-03-21] MEDS: LACTATED RINGERS SOLUTION 1,000 ML IV SCH ×3 (03:13→16:33)
[2018-03-21] MEDS: HEPARIN NA (PORCINE) 5,000 UNITS/ML 1ML VIAL SQ SCH ×3 (06:45→22:14)
[2018-03-21 07:55] LABS: BASO % 0.2 % (0-2.0); HEMOGLOBIN 10.1 GM/dL (10.7-15.3); LYMPH % 7.4 % (8-40); MCH 26.7 pg (25.7-33.7); MCHC 31.6 g/dl (32.0-36.0); MEAN CELL VOLUME 84.3 fl (80-96); MEAN PLT VOLUME 10.2 fl (7.5-11.1); MONO % 10.7 % (3.8-10.2); NEUT % 81.7 % (42.8-82.8); PLATELET COUNT 207 K/MM3 (134-434); RDW 15.7 % (11.6-15.6); WHITE BLOOD COUNT 13.7 K/mm3 (4.0-10.0)
--- NOTE | 2018-03-21 08:13 | PN ---
Teaching Attending Note Name of Resident: Keisha Mitchell ATTENDING PHYSICIAN STATEMENT I saw and evaluated the patient. I reviewed the resident's note and discussed the case with the resident. I agree with the resident's findings and plan as documented. SUBJECTIVE:states pain is controlled with pain medication. denies CP, SOB, fever , chills, N/V/C/D, no flatus or BM OBJECTIVE: Last Vital Signs Temp Pulse Resp BP Pulse Ox 99.1 F 85 18 119/68 90 L 03/21/18 06:00 03/21/18 06:00 03/21/18 06:00 03/21/18 06:00 03/20/18 21:00 Intake & Output 03/18/18 03/19/18 03/20/18 03/21/18 23:59 23:59 23:59 23:59 Intake Total 2625 Output Total 1100 Balance 1525 Weight 180 lb 180 lb General NAD CV S1 S2 RRR no murmur/rub/gallop Lungs CTA anteriorly Abdomen soft slightly tender. not distended hypoactive BS ASSESSMENT AND PLAN: 47yo F wtih PMH PMH obesity presented to the ER wtih abdominal pain x2 days and found to have strangulated inguinal hernia 1. Strangulated inguinal hernia- s/p exlap with small bowel resection and R inguinal hernia repair 03/20. NGT with copious bile output on suction. some hypoactive BS but no return of bowel function. will cont NGT, NPO, IVF with pain and nausea control. 2. Normocytic anemia- no signs of bleeding. Hgb is stable. check iron studies. no indication for transfusion 3. Obesity- BMI 30. discussed lifestyle modifications. diet and exercise. 4. DVT ppx- hep sq
[2018-03-21 08:19] LABS: ALBUMIN 2.6 g/dl (3.4-5.0); ALK PHOS 50 U/L (45-117); ANION GAP 6 MMOL/L (8-16); BILIRUBIN,TOTAL 0.4 mg/dL (0.2-1); BLOOD UREA NITROGEN 11 mg/dL (7-18); CALCIUM 7.8 mg/dL (8.5-10.1); CHLORIDE 104 mmol/L (98-107); CO2 27 mmol/L (21-32); CREATININE 0.5 mg/dL (0.55-1.3); GLUCOSE,RANDOM 95 mg/dL (74-106); POTASSIUM 3.8 mmol/L (3.5-5.1); SGOT/AST 13 U/L (15-37); SGPT/ALT 17 U/L (13-61); SODIUM 138 mmol/L (136-145); TOT PROT 5.4 g/dl (6.4-8.2)
[2018-03-21] MEDS ORDERED: BENZOCAINE/MENTH/CETYLPYRD CL 1 EACH LOZENGE MM ONE (12:00)
--- NOTE | 2018-03-21 12:15 | PN ---
Progress Note, Physician Chief Complaint: abdominal pain History of Present Illness: 47yo female no significant PMH presents to ED with abdominal pain, nausea, vomiting, and diarrhea x 3 days after "eating at a restaurant." She has been stable post-operatively. No complaints, walking the euceda with her daughter. - Current Medication List Current Medications: Active Medications Acetaminophen (Ofirmev Injection -) 1,000 mg IVPB Q6H PRN PRN Reason: PAIN LEVEL 4 - 6 Last Admin: 03/20/18 03:13 Dose: 1,000 mg Heparin Sodium (Porcine) (Heparin -) 5,000 unit SQ TID SCARLET Last Admin: 03/21/18 06:45 Dose: 5,000 unit Hydromorphone HCl (Dilaudid Streetcar Repairer -) 10 mg MURAL PAINTER MURAL PAINTER SCARLET; Protocol Stop: 03/27/18 02:59 Last Admin: 03/21/18 07:32 Dose: Not Given Lactated Ringer's (Lactated Ringers Solution) 1,000 mls @ 125 mls/hr IV ASDIR SCARLET Last Admin: 03/21/18 06:44 Dose: 125 mls/hr Ondansetron HCl (Zofran Injection) 8 mg IVPB Q8H-IV SCARLET Last Admin: 03/21/18 09:44 Dose: 8 mg Promethazine HCl (Phenergan Injection -) 12.5 mg IVPB Q6H PRN PRN Reason: NAUSEA AND/OR VOMITING - Objective Vital Signs: Vital Signs Temperature 99.1 F 03/21/18 10:00 Pulse Rate 85 03/21/18 10:00 Respiratory Rate 20 03/21/18 10:00 Blood Pressure 117/68 03/21/18 10:00 O2 Sat by Pulse Oximetry (%) 95 03/21/18 09:00 Vital Signs Period Temp Pulse Resp BP Sys/Wray Pulse Ox Last 24 Hr 98.2 F-99.2 F 75-92 17-20 100-177/63-68 90-95 Intake & Output 03/20/18 03/21/18 03/21/18 23:59 07:59 15:59 Intake Total 2050 Output Total 700 300 Balance 1350 -300 Intake: IV 1750 Lactated Ringers Solution 1750 1,000 ml @ 125 mls/hr IV ASDIR SCARLET Rx#: [id number] IVPB 300 Output: Gastric Drainage 100 300 Urine 600 Void 600 Other: Voiding Method Bedpan Toilet # Unmeasured Voids Void 0 Bowel Movement No No Constitutional: Yes: Well Nourished, No Distress, Calm Eyes: Yes: Conjunctiva Clear, EOM Intact HENT: Yes: Atraumatic, Normocephalic Neck: Yes: Supple, Trachea Midline Cardiovascular: Yes: Regular Rate and Rhythm, S1, S2 Respiratory: Yes: Regular, CTA Bilaterally Gastrointestinal: Yes: Normal Bowel Sounds, Soft, Abdomen, Obese, Tenderness ( incisonal) ...Rectal Exam: Yes: Deferred Genitourinary: No: CVA Tenderness - Left, CVA Tenderness - Right Musculoskeletal: No: Muscle Pain, Muscle Weakness Extremities: No: Cool, Cyanosis Edema: No Peripheral Pulses WNL: Yes Peripheral Pulses: Left Radial: 2+, Right Radial: 2+, Left Doralis Pedis: 2+, Right Dorsalis Pedis: 2+ Wound/Incision: Yes: Clean/Dry, Well Approximated, Dressing Dry and Intact Neurological: Yes: Alert, Oriented Psychiatric: Yes: Alert, Oriented Labs: CBC, BMP 03/21/18 07:00 03/21/18 07:00 Problem List - Problems (1) Strangulated inguinal hernia Assessment/Plan: 47 yo female with right inguinal hernia stangulated POD#1 s/p Exploratory laparotomy, segmental ressection of small bowel and primary repair of right inguinal hernia. leukocytosis is resolving. NPO and IVF hydration continue NGT deomcompression adequate analgesia Ambulate/ OOB encoruage IS Local wound care Code(s): K40.30 - UNIL INGUINAL HERNIA, W OBST, W/O GANGR, NOT SPCF RECUR (2) Abdominal pain Code(s): R10.9 - UNSPECIFIED ABDOMINAL PAIN Qualifiers: Abdominal location: epigastric Qualified Code(s): R10.13 - Epigastric pain (3) Inguinal hernia of right side with obstruction Code(s): K40.30 - UNIL INGUINAL HERNIA, W OBST, W/O GANGR, NOT SPCF RECUR (4) Small bowel obstruction Code(s): K56.609 - UNSP INTESTNL OBST, UNSP TO PARTIAL VERSUS COMPLETE OBST
--- NOTE | 2018-03-21 12:55 | PN ---
Progress Note (short form) - Note Progress Note: ANESTHESIOLOGY 47F s/p ex-lap SBR and right IHR under general anesthesia POD #1. No acute complaints. Pain 5/10 and tolerable with DUPLICATING MACHINE SERVICER. NPO with NGT in place. Denies N/V. Vital Signs Temperature 99.1 F 03/21/18 10:00 Pulse Rate 85 03/21/18 10:00 Respiratory Rate 20 03/21/18 10:00 Blood Pressure 117/68 03/21/18 10:00 O2 Sat by Pulse Oximetry (%) 95 03/21/18 09:00 Active Medications Acetaminophen (Ofirmev Injection -) 1,000 mg IVPB Q6H PRN PRN Reason: PAIN LEVEL 4 - 6 Last Admin: 03/20/18 03:13 Dose: 1,000 mg Heparin Sodium (Porcine) (Heparin -) 5,000 unit SQ TID SCARLET Last Admin: 03/21/18 06:45 Dose: 5,000 unit Hydromorphone HCl (Dilaudid Laborer [employer] House -) 10 mg DUPLICATING MACHINE SERVICER DUPLICATING MACHINE SERVICER SCARLET; Protocol Stop: 03/27/18 02:59 Last Admin: 03/21/18 07:32 Dose: Not Given Lactated Ringer's (Lactated Ringers Solution) 1,000 mls @ 125 mls/hr IV ASDIR SCARLET Last Admin: 03/21/18 06:44 Dose: 125 mls/hr Ondansetron HCl (Zofran Injection) 8 mg IVPB Q8H-IV SCARLET Last Admin: 03/21/18 09:44 Dose: 8 mg Promethazine HCl (Phenergan Injection -) 12.5 mg IVPB Q6H PRN PRN Reason: NAUSEA AND/OR VOMITING Gen: awake, alert , NAD No apparent anesthesia complications. Continue DUPLICATING MACHINE SERVICER until tolerating PO diet.
--- NOTE | 2018-03-21 13:52 | PN ---
Physical Exam: SUBJECTIVE: No acute events overnight. Pt reports pain controlled with NEPHROLOGIST pump and pressing button only when pain becomes intolerable. Pt denies any belching or flatus at this point. POD#1 into 2 OBJECTIVE: Vital Signs Period Temp Pulse Resp BP Sys/Wray Pulse Ox Last 24 Hr 98.2 F-99.2 F 75-92 17-20 100-177/63-68 90-95 GENERAL: The patient is awake, alert, and fully oriented, in no acute distress. HEENT: EOMI, FACUNDO, sclera anicteric, NGT draining bilious fluid (100cc currently in cannister at time of visit) NECK: No JVD LUNGS: CTA bilaterally, no wheezes, no crackles, no accessory muscle use. HEART: RRR, S1, S2 without murmur ABDOMEN: Soft, nondistended, slightly tender around surgical site, site with overlying clean bandage; no drainage or erythema noted, hypoactive BS, no guarding. EXTREMITIES: 2+ pulses, warm, well-perfused, no edema. PSYCH: Normal mood, normal affect. SKIN: Warm, dry, no rashes noted Laboratory Results - last 24 hr 03/21/18 03/21/18 07:00 07:00 WBC 13.7 H RBC 3.80 Hgb 10.1 L Hct 32.0 L MCV 84.3 MCH 26.7 MCHC 31.6 L RDW 15.7 H Plt Count 207 D MPV 10.2 Absolute Neuts (auto) 11.2 H Neutrophils % 81.7 Lymphocytes % 7.4 L D Monocytes % 10.7 H Eosinophils % 0.0 Basophils % 0.2 Nucleated RBC % 0 Sodium 138 Potassium 3.8 Chloride 104 Carbon Dioxide 27 Anion Gap 6 L BUN 11 Creatinine 0.5 L Creat Clearance w eGFR > 60 Random Glucose 95 Calcium 7.8 L Total Bilirubin 0.4 AST 13 L ALT 17 Alkaline Phosphatase 50 Total Protein 5.4 L Albumin 2.6 L Active Medications Generic Name Dose Route Start Last Admin Trade Name Freq PRN Reason Stop Dose Admin Acetaminophen 1,000 mg 03/20/18 03:00 03/20/18 03:13 Ofirmev Injection - IVPB 1,000 mg Q6H PRN Administration PAIN LEVEL 4 - 6 Heparin Sodium (Porcine) 5,000 unit 03/20/18 14:00 03/21/18 06:45 Heparin - SQ 5,000 unit TID SCARLET Administration Hydromorphone HCl 10 mg 03/20/18 03:59 03/21/18 07:32 Dilaudid Neon Tube Pumper - NEPHROLOGIST 03/27/18 02:59 Not Given NEPHROLOGIST SCARLET Protocol Lactated Ringer's 1,000 mls @ 125 mls/hr 03/20/18 03:00 03/21/18 06:44 Lactated Ringers Solution IV 125 mls/hr ASDIR SCARLET Administration Ondansetron HCl 8 mg 03/20/18 03:00 03/21/18 09:44 Zofran Injection IVPB 8 mg Q8H-IV SCARLET Administration Promethazine HCl 12.5 mg 03/20/18 02:58 Phenergan Injection - IVPB Q6H PRN NAUSEA AND/OR VOMITING ASSESSMENT/PLAN: 1) R Inguinal Hernia, strangulated --POD 1 into 2 s/p Exlap, small bowel resection and primary anastomosis. --Continue to have large amount of bile output from NGT; to continue on suction --NPO --Continue NEPHROLOGIST until bowel function per anesthesia --LR @ 125cc/hr to continue --Zofran and Phenergan for nausea control --Surgery on board; appreciate recommendations 2) Normocytic anemia --no active signs of bleeding --Iron studies ordered --H/H stable from yesterday --Monitor FEN: Fluids: LR @125cc/hr Electrolyte abnormalities: None currently Nutrition: NPO PPX: DVT - Heparin SQ dispo: Continue m/s floor monitoring Case discussed with Dr. John Rasmussen, DO - IM PGY-2 Visit type - Emergency Visit Emergency Visit: Yes ED Registration Date: 03/20/18 Care time: The patient presented to the Emergency Department on the above date and was hospitalized for further evaluation of their emergent condition. - New Patient This patient is new to me today: No - Critical Care Critical Care patient: No
[2018-03-22] MEDS: LACTATED RINGERS SOLUTION 1,000 ML IV SCH ×3 (01:04→10:12)
[2018-03-22] MEDS: ONDANSETRON 4 MG/2 ML VIAL IVPB SCH ×3 (02:38→18:26)
[2018-03-22] MEDS: HEPARIN NA (PORCINE) 5,000 UNITS/ML 1ML VIAL SQ SCH ×3 (06:15→21:24)
[2018-03-22 07:18] LABS: HEMATOCRIT 29.1 % (32.4-45.2); HEMOGLOBIN 9.3 GM/dL (10.7-15.3); MCH 26.9 pg (25.7-33.7); MEAN CELL VOLUME 83.9 fl (80-96); MEAN PLT VOLUME 10.1 fl (7.5-11.1); PLATELET COUNT 189 K/MM3 (134-434); RBC 3.47 M/mm3 (3.60-5.2); RDW 15.6 % (11.6-15.6); WHITE BLOOD COUNT 11.2 K/mm3 (4.0-10.0)
[2018-03-22 07:44] LABS: ANION GAP 6 MMOL/L (8-16); BLOOD UREA NITROGEN 12 mg/dL (7-18); CALCIUM 7.7 mg/dL (8.5-10.1); CHLORIDE 104 mmol/L (98-107); CO2 29 mmol/L (21-32); CREATININE 0.3 mg/dL (0.55-1.3); GLUCOSE,RANDOM 88 mg/dL (74-106); MAGNESIUM 2.2 mg/dL (1.8-2.4); PHOSPHOROUS 2.6 mg/dL (2.5-4.9); POTASSIUM 3.6 mmol/L (3.5-5.1); SODIUM 139 mmol/L (136-145)
[2018-03-22] MEDS: HYDROmorphone *PCA* 10MG/50ML DISP.SYRIN PCA SCH (08:58)
--- NOTE | 2018-03-22 09:28 | PN ---
Physical Exam: SUBJECTIVE: Patient seen and examined at bedside. No acute events overnight. Patient states she is feeling well with minimal pain and minimal use of the HISTORIC INTERPRETER pump. She is having slight some slight nausea but the Zofran is helping her.She has not passed flatus yet, however is having occasional burps. She is still putting out bile from the NGT. The surgical PA came this am to check and change dressing- it is clean,dry,intact. She denies any CP, SOB, vomiting, headache or fevers. OBJECTIVE: Vital Signs Period Temp Pulse Resp BP Sys/Wray Pulse Ox Last 24 Hr 98.6 F-99.1 F 76-85 18-20 117-137/68-80 97 GENERAL: The patient is awake, alert, and fully oriented, in no acute distress.. LUNGS:CTA B/L; no rales, rhonchi or wheezing. HEART: Regular rate and rhythm, S1, S2 without murmur, rub or gallop. ABDOMEN: Soft, nontender, nondistended, normoactive bowel sounds, surgical dressing is cleean/dry/intact EXTREMITIES: 2+ pulses, warm, well-perfused, no edema. PSYCH: Normal mood, normal affect. SKIN: Warm, dry, normal turgor, no rashes or lesions noted Laboratory Results - last 24 hr 03/22/18 03/22/18 06:30 06:30 WBC 11.2 H RBC 3.47 L Hgb 9.3 L Hct 29.1 L MCV 83.9 MCH 26.9 MCHC 32.0 RDW 15.6 Plt Count 189 MPV 10.1 Sodium 139 Potassium 3.6 Chloride 104 Carbon Dioxide 29 Anion Gap 6 L BUN 12 Creatinine 0.3 L Creat Clearance w eGFR > 60 Random Glucose 88 Calcium 7.7 L Phosphorus 2.6 Magnesium 2.2 Ferritin 60.1 Active Medications Generic Name Dose Route Start Last Admin Trade Name Freq PRN Reason Stop Dose Admin Acetaminophen 1,000 mg 03/20/18 03:00 03/20/18 03:13 Ofirmev Injection - IVPB 1,000 mg Q6H PRN Administration PAIN LEVEL 4 - 6 Heparin Sodium (Porcine) 5,000 unit 03/20/18 14:00 03/22/18 06:15 Heparin - SQ 5,000 unit TID SCARLET Administration Hydromorphone HCl 10 mg 03/20/18 03:59 03/22/18 08:58 Dilaudid Combatant Diver Officer - HISTORIC INTERPRETER 03/27/18 02:59 Not Given HISTORIC INTERPRETER SCARLET Protocol Lactated Ringer's 1,000 mls @ 125 mls/hr 03/20/18 03:00 03/22/18 08:58 Lactated Ringers Solution IV Not Given ASDIR SCARLET Ondansetron HCl 8 mg 03/20/18 03:00 03/22/18 02:38 Zofran Injection IVPB 8 mg Q8H-IV SCARLET Administration Promethazine HCl 12.5 mg 03/20/18 02:58 Phenergan Injection - IVPB Q6H PRN NAUSEA AND/OR VOMITING ASSESSMENT/PLAN: 1) R Inguinal Hernia, --POD 2 s/p Exlap, small bowel resection --NPO as patient has not passed flatus yet --Continue HISTORIC INTERPRETER until bowel function per anesthesia --LR @ 125cc/hr to continue --Zofran and Phenergan for nausea control --Surgery on board; appreciate recommendations 2) Normocytic anemia --no active signs of bleeding --Hgb remains stable -monitor for signs of bleeding FEN: Fluids: LR @125cc/hr Electrolyte abnormalities: None currently Nutrition: NPO PPX: DVT - Heparin SQ Problem List - Problems (1) Inguinal hernia of right side with obstruction Code(s): K40.30 - UNIL INGUINAL HERNIA, W OBST, W/O GANGR, NOT SPCF RECUR (2) Strangulated inguinal hernia Code(s): K40.30 - UNIL INGUINAL HERNIA, W OBST, W/O GANGR, NOT SPCF RECUR Visit type - Emergency Visit Emergency Visit: Yes ED Registration Date: 03/20/18 Care time: The patient presented to the Emergency Department on the above date and was hospitalized for further evaluation of their emergent condition. - New Patient This patient is new to me today: Yes Date on this admission: 03/22/18 - Critical Care Critical Care patient: No
--- NOTE | 2018-03-22 11:02 | PN ---
Progress Note, Physician Chief Complaint: abdominal pain History of Present Illness: 47yo female no significant PMH presents to ED with abdominal pain, nausea, vomiting, and diarrhea x 3 days after "eating at a restaurant." She has been stable post-operatively. No complaints, walking the euceda with her daughter. low grade fever. - Current Medication List Current Medications: Active Medications Acetaminophen (Ofirmev Injection -) 1,000 mg IVPB Q6H PRN PRN Reason: PAIN LEVEL 4 - 6 Last Admin: 03/20/18 03:13 Dose: 1,000 mg Heparin Sodium (Porcine) (Heparin -) 5,000 unit SQ TID SCARLET Last Admin: 03/22/18 06:15 Dose: 5,000 unit Hydromorphone HCl (Dilaudid Claims Technician -) 10 mg DONOR RECRUITMENT MANAGER DONOR RECRUITMENT MANAGER [facility]; Protocol Stop: 03/27/18 02:59 Last Admin: 03/22/18 08:58 Dose: Not Given Lactated Ringer's (Lactated Ringers Solution) 1,000 mls @ 125 mls/hr IV ASDIR SCARLET Last Admin: 03/22/18 10:12 Dose: 125 mls/hr Ondansetron HCl (Zofran Injection) 8 mg IVPB Q8H-IV SCARLET Last Admin: 03/22/18 10:13 Dose: 8 mg Promethazine HCl (Phenergan Injection -) 12.5 mg IVPB Q6H PRN PRN Reason: NAUSEA AND/OR VOMITING - Objective Vital Signs: Vital Signs Temperature 98.6 F 03/22/18 06:00 Pulse Rate 82 03/22/18 06:00 Respiratory Rate 18 03/22/18 06:00 Blood Pressure 130/74 03/22/18 06:00 O2 Sat by Pulse Oximetry (%) 97 03/21/18 21:00 Vital Signs Period Temp Pulse Resp BP Sys/Wray Pulse Ox Last 24 Hr 98.6 F-99 F 76-82 -18 118-137/70-80 97 Intake & Output 03/21/18 03/22/18 03/22/18 23:59 07:59 15:59 Intake Total 1975 Output Total 400 Balance 1575 Intake: IV 1875 Lactated Ringers Solution 1875 1,000 ml @ 125 mls/hr IV ASDIR SCARLET Rx#: [id number] IVPB 100 Output: Gastric Drainage 400 60? Other: Voiding Method Toilet Bowel Movement No # Bowel Movements 0 Constitutional: Yes: Well Nourished, No Distress, Calm, Obese Eyes: Yes: Conjunctiva Clear, EOM Intact HENT: Yes: Atraumatic, Normocephalic Neck: Yes: Supple, Trachea Midline Cardiovascular: Yes: Regular Rate and Rhythm, S1, S2 Respiratory: Yes: Regular, CTA Bilaterally Gastrointestinal: Yes: Normal Bowel Sounds, Soft, Abdomen, Obese, Tenderness ( incisional) ...Rectal Exam: Yes: Deferred Genitourinary: No: CVA Tenderness - Left Musculoskeletal: No: Muscle Pain, Muscle Weakness Extremities: No: Cool, Cyanosis Edema: No Peripheral Pulses WNL: Yes Peripheral Pulses: Left Radial: 2+, Right Radial: 2+, Left Doralis Pedis: 2+, Right Dorsalis Pedis: 2+ Integumentary: No: Jaundice, Rash Wound/Incision: Yes: Clean/Dry, Well Approximated, Karolina Intact, Open to air Neurological: Yes: Alert, Oriented Psychiatric: Yes: Alert, Oriented Labs: CBC, BMP 03/22/18 06:30 03/22/18 06:30 Problem List - Problems (1) Strangulated inguinal hernia Assessment/Plan: 47 yo female with right inguinal hernia stangulated POD#2 s/p Exploratory laparotomy, segmental ressection of small bowel and primary repair of right inguinal hernia. leukocytosis is resolving. NGT is scant output per shift. NPO and IVF hydration continue NGT decompression adequate analgesia Ambulate/ OOB encoruage IS repeat CBC will follow Code(s): K40.30 - UNIL INGUINAL HERNIA, W OBST, W/O GANGR, NOT SPCF RECUR (2) Abdominal pain Code(s): R10.9 - UNSPECIFIED ABDOMINAL PAIN Qualifiers: Abdominal location: epigastric Qualified Code(s): R10.13 - Epigastric pain (3) Inguinal hernia of right side with obstruction Code(s): K40.30 - UNIL INGUINAL HERNIA, W OBST, W/O GANGR, NOT SPCF RECUR (4) Small bowel obstruction Code(s): K56.609 - UNSP INTESTNL OBST, UNSP TO PARTIAL VERSUS COMPLETE OBST
--- NOTE | 2018-03-22 13:19 | PN ---
Teaching Attending Note Name of Resident: Marycruz Mendiola ATTENDING PHYSICIAN STATEMENT I saw and evaluated the patient. I reviewed the resident's note and discussed the case with the resident. I agree with the resident's findings and plan as documented. SUBJECTIVE:states she has urge to pass gas but has not yet. ambulating without difficulty. pain is controlled. denies Cp, SOB, fever, chills, N/V OBJECTIVE: Last Vital Signs Temp Pulse Resp BP Pulse Ox 98.6 F 82 18 130/74 97 03/22/18 06:00 03/22/18 06:00 03/22/18 06:00 03/22/18 06:00 03/21/18 21:00 Intake & Output 03/19/18 03/20/18 03/21/18 03/22/18 23:59 23:59 23:59 23:59 Intake Total 4325 1975 Output Total 1400 700 Balance 2925 1275 Weight 180 lb 180 lb General NAD CV S1 S2 RRR no murmur/rub/gallop Lungs CTA anteriorly Abdomen soft slightly tender. not distended. no BS ASSESSMENT AND PLAN: 47yo F wtih PMH PMH obesity presented to the ER wt abdominal pain x2 days and found to have strangulated inguinal hernia 1. Strangulated inguinal hernia- s/p exlap with small bowel resection and R inguinal hernia repair 03/20. NGT still to suction, decreased output. no return of bowel function. cont NPO, NGT to suction, IVF pain and nausea control. encrouage OOB to chair. surgery on board 2. Normocytic anemia- no signs of bleeding. Hgb is stable. iron studies pending. no indication for transfusion 3. Obesity- BMI 30. discussed lifestyle modifications. diet and exercise. 4. DVT ppx- hep sq 5. spoke with daughter present at bedside. all questions answered. verbalized understanding and agreement
[2018-03-22] MEDS ORDERED: oxyCODONE HCL 5 MG TABLET PO PRN (15:19)
--- NOTE | 2018-03-22 15:22 | PN ---
Progress Note (short form) - Note Progress Note: Patient stable and c/o pain score of 2-3/10.So will dc ground systems engineer and put patient on prn pain medication.Katherine sanderson anesthesia related problem.Patient Dc from the anesthesia care.
[2018-03-23] MEDS: ONDANSETRON 4 MG/2 ML VIAL IVPB SCH ×3 (02:01→17:24)
[2018-03-23] MEDS: LACTATED RINGERS SOLUTION 1,000 ML IV SCH (04:17)
[2018-03-23 06:07] LABS: HEMOGLOBIN 9.4 GM/dL (10.7-15.3); MCH 27.1 pg (25.7-33.7); MCHC 32.4 g/dl (32.0-36.0); MEAN CELL VOLUME 83.7 fl (80-96); MEAN PLT VOLUME 9.9 fl (7.5-11.1); PLATELET COUNT 206 K/MM3 (134-434); RBC 3.46 M/mm3 (3.60-5.2); RDW 15.2 % (11.6-15.6); WHITE BLOOD COUNT 9.1 K/mm3 (4.0-10.0)
[2018-03-23 06:09] LABS: SERUM IRON SATURATION 5 % (15-55); TOTAL IRON BINDING CAPACITY 203 ug/dL (250-450); UIBC 193 ug/dL (131-425)
[2018-03-23 06:41] LABS: ANION GAP 8 MMOL/L (8-16); BLOOD UREA NITROGEN 9 mg/dL (7-18); CALCIUM 7.3 mg/dL (8.5-10.1); CHLORIDE 104 mmol/L (98-107); CO2 31 mmol/L (21-32); CREATININE 0.3 mg/dL (0.55-1.3); GLUCOSE,RANDOM 101 mg/dL (74-106); MAGNESIUM 2.1 mg/dL (1.8-2.4); PHOSPHOROUS 2.2 mg/dL (2.5-4.9); POTASSIUM 3.4 mmol/L (3.5-5.1); SODIUM 142 mmol/L (136-145)
[2018-03-23] MEDS: HEPARIN NA (PORCINE) 5,000 UNITS/ML 1ML VIAL SQ SCH ×3 (06:53→21:38)
[2018-03-23] MEDS: D5-1/2NS+10 MEQ KCL - 10 MEQ/1,000 ML INFUS.BAG IV SCH ×2 (08:12→23:50)
[2018-03-23] MEDS ORDERED: PT OWN MED DRAWER 7, Y5N ONE (11:14)
[2018-03-23] MEDS: HYDROmorphone HCl 2 MG/ML VIAL IVPB PRN ×2 (11:18→20:50)
--- NOTE | 2018-03-23 11:27 | PN ---
Physical Exam: SUBJECTIVE: Patient seen and examined at bedside. No acute events overnihgt- patient states she is finally passing flatus and is getting up and walking around a little. She is not really experiencing anymore abdominal pain and is not requiring much pain medication overnight. Her NGT put out 200cc of bile overnight. She denies any CP/SOB/N/V OBJECTIVE: Vital Signs Period Temp Pulse Resp BP Sys/Wray Pulse Ox Last 24 Hr 98.8 F-99.3 F 74-82 18-20 130-146/76-82 GENERAL: The patient is awake, alert, and fully oriented, in no acute distress.. EYES: no scleral icterus LUNGS: CTA B/L; no rales, rhonchi or wheezing. HEART: Regular rate and rhythm, S1, S2 without murmur, rub or gallop. ABDOMEN: Soft, nontender, nondistended, normoactive bowel sounds, no guarding, no rebound, no hepatosplenomegaly, no masses. Surgical dressing clean/dry/intact EXTREMITIES: 2+ pulses, warm, well-perfused, no edema. PSYCH: Normal mood, normal affect. SKIN: Warm, dry, normal turgor, no rashes or lesions noted Laboratory Results - last 24 hr 03/22/18 03/23/18 03/23/18 06:30 05:30 05:30 WBC 9.1 RBC 3.46 L Hgb 9.4 L Hct 29.0 L MCV 83.7 MCH 27.1 MCHC 32.4 RDW 15.2 Plt Count 206 MPV 9.9 Sodium 142 Potassium 3.4 L Chloride 104 Carbon Dioxide 31 Anion Gap 8 BUN 9 Creatinine 0.3 L Creat Clearance w eGFR > 60 Random Glucose 101 Calcium 7.3 L Phosphorus 2.2 L Magnesium 2.1 Iron 10 L TIBC 203 L Iron Saturation 5 L Active Medications Generic Name Dose Route Start Last Admin Trade Name Freq PRN Reason Stop Dose Admin Acetaminophen 1,000 mg 03/20/18 03:00 03/20/18 03:13 Ofirmev Injection - IVPB 1,000 mg Q6H PRN Administration PAIN LEVEL 4 - 6 Heparin Sodium (Porcine) 5,000 unit 03/20/18 14:00 03/23/18 06:53 Heparin - SQ 5,000 unit TID [facility] Administration Hydromorphone HCl 2 mg 03/22/18 15:16 10/23/18 11:18 Dilaudid Vial - IVPB 2 mg Q4H PRN Administration PAIN LEVEL 4 - 6 Iron Sucrose 200 mg/ Sodium 100 mls @ 100 mls/hr 03/23/18 08:00 Chloride IVPB 03/28/18 07:59 DAILY@0800 [facility] Potassium Chloride/Dextrose/Sod Cl 10 meq in 1,000 mls @ 83 mls/hr 03/23/18 08 :00 03/23/18 08:12 D5-1/2ns+10 Meq Kcl - IV 83 mls/hr ASDIR [facility] Administration Ondansetron HCl 8 mg 03/20/18 03:00 03/23/18 10:09 Zofran Injection IVPB 8 mg Q8H-IV [facility] Administration Oxycodone HCl 10 mg 03/22/18 15:19 Roxicodone - PO Q3H PRN PAIN LEVEL 6-10 Promethazine HCl 12.5 mg 03/20/18 02:58 Phenergan Injection - IVPB Q6H PRN NAUSEA AND/OR VOMITING ASSESSMENT/PLAN: 47 y/o female with no significant PMH presents to the ED with abdominal pain found to a strangualted inguinal hernia requiring ex-lap and small bowel resection 1) R Inguinal Hernia, POD 3 s/p Exlap, small bowel resection pateint has passed flatus- awaiting surgery recs regarding diet PO oxycodone PRN for pain; no 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 needing TOWER SWITCH OPERATOR D51/2 NS+KCL @83mls/hr Zofran and Phenergan for nausea control Surgery on board; appreciate recommendations 2) Normocytic anemia no active signs of bleeding Hgb remains stable monitor for signs of bleeding started IV iron- iron studies show an iron deficiency anemia FEN: Fluids: D51/2Ns+KCL @83mls/hr Electrolyte abnormalities: hypokalemia and hypophasphatemia- repleted Nutrition: NPO until further surgery reccommendations PPX: DVT - Heparin SQ Problem List - Problems (1) Inguinal hernia of right side with obstruction Code(s): K40.30 - UNIL INGUINAL HERNIA, W OBST, W/O GANGR, NOT SPCF RECUR (2) Strangulated inguinal hernia Code(s): K40.30 - UNIL INGUINAL HERNIA, W OBST, W/O GANGR, NOT SPCF RECUR Visit type - Emergency Visit Emergency Visit: Yes ED Registration Date: 03/20/18 Care time: The patient presented to the Emergency Department on the above date and was hospitalized for further evaluation of their emergent condition. - New Patient This patient is new to me today: No - Critical Care Critical Care patient: No
[2018-03-23] MEDS: IRON SUCROSE INJECTION 200 MG in SODIUM CHLORIDE 90 ML IVPB SCH (12:09)
--- NOTE | 2018-03-23 13:40 | PN ---
Teaching Attending Note Name of Resident: Marycruz Mendiola ATTENDING PHYSICIAN STATEMENT I saw and evaluated the patient. I reviewed the resident's note and discussed the case with the resident. I agree with the resident's findings and plan as documented. SUBJECTIVE:pain is improved. passing flatus. denies CP, SOB, fever, chills, N/V/ C/D OBJECTIVE: Last Vital Signs Temp Pulse Resp BP Pulse Ox 98.8 F 74 20 146/78 91 L 03/23/18 09:59 03/23/18 10:00 03/23/18 10:00 03/23/18 10:00 03/23/18 09:00 Intake & Output 03/20/18 03/21/18 03/22/18 03/23/18 23:59 23:59 23:59 23:59 Intake Total 4325 1975 950 Output Total 1400 700 350 200 Balance 2925 1275 600 -200 Weight 180 lb 180 lb General NAD Abdomen soft slightly tender. not distended. no BS ASSESSMENT AND PLAN: 47yo F wtih PMH PMH obesity presented to the ER wtih abdominal pain x2 days and found to have strangulated inguinal hernia 1. Strangulated inguinal hernia- s/p exlap with small bowel resection and R inguinal hernia repair 03/20. NGT still to suction, decreased output. having flatus. d/w GI about clamping NGT at this time or continue. FUR DRESSING SUPERVISOR pump stopped and pain controlled with percocet. cont NPO, NGT to suction, IVF, pain and nausea control. encourage OOB to chair. surgery on board 2. Iron def anemia- no signs of bleeding. Hgb is stable. will start venofer while hospitalized. as pt is NPO and to limit constipating agents as on opiates and post-op. no indication for transfusion 3. hypokalemia- KCl in the IVF 4. Obesity- BMI 30. discussed lifestyle modifications. diet and exercise. 5. DVT ppx- hep sq
--- NOTE | 2018-03-23 15:08 | PATH ---
Surgical Pathology Report Patient Name: TULIO TEE Med. Rec. #: [id number] /Age/Gender: 1970 (Age: 47) / F Account: [id number] Location: [facility] MED/SURG Taken: 03/20/2018 Received: 03/22/2018 Reported: 03/23/2018 Physicians: Romario Hogan M.D. PHYSICIAN EMERGENCY DEPT Specimen(s) Received SMALL BOWEL,SEGMENTAL RESECTION OTHER THAN TUMOR Clinical History Strangulated right inguinal hernia Final Diagnosis SMALL BOWEL, RESECTION: SEGMENT OF SMALL BOWEL WITH VASCULAR CONGESTION, HEMORRHAGE, AND EDEMA. SURGICAL MARGINS ARE VIABLE. Electronically Signed Janneth Fernández M.D. Gross Description Received in formalin labeled "segment of small bowel," is an 8 cm in length portion of small bowel with 2 stapled mucosal margins and minimal attached fat. The serosa is vargas-arellano with a 3 cm in length ischemic appearing focus. The mucosa is vargas with normal folds. Mailroom Associate sections are submitted in 5 cassettes as follows: 8-7-[id number] stapled mucosal margins; 9-1-skrxwmrj from ischemic focus of bowel; 5-normal bowel. DL/03/22/2018 saudi/03/22/2018
--- NOTE | 2018-03-23 15:23 | PN ---
Progress Note, Physician Chief Complaint: abdominal pain History of Present Illness: 47yo female no significant PMH presents to ED with abdominal pain, nausea, vomiting, and diarrhea x 3 days after "eating at a restaurant." She has been stable post-operatively. No complaints, ambulating, voiding, passed flatus today. - Current Medication List Current Medications: Active Medications Acetaminophen (Ofirmev Injection -) 1,000 mg IVPB Q6H PRN PRN Reason: PAIN LEVEL 4 - 6 Last Admin: 03/20/18 03:13 Dose: 1,000 mg Heparin Sodium (Porcine) (Heparin -) 5,000 unit SQ TID [facility] Last Admin: 03/23/18 14:22 Dose: 5,000 unit Hydromorphone HCl (Dilaudid Vial -) 2 mg IVPB Q4H PRN PRN Reason: PAIN LEVEL 4 - 6 Last Admin: 03/23/18 11:18 Dose: 2 mg Iron Sucrose 200 mg/ Sodium (Chloride) 100 mls @ 100 mls/hr IVPB DAILY@0800 [facility] Stop: 03/28/18 07:59 Last Admin: 03/23/18 12:09 Dose: 100 mls/hr Potassium Chloride/Dextrose/Sod Cl (D5-1/2ns+10 Meq Kcl -) 10 meq in 1,000 mls @ 83 mls/hr IV ASDIR [facility] Last Admin: 03/23/18 08:12 Dose: 83 mls/hr Ondansetron HCl (Zofran Injection) 8 mg IVPB Q8H-IV [facility] Last Admin: 03/23/18 10:09 Dose: 8 mg Oxycodone HCl (Roxicodone -) 10 mg PO Q3H PRN PRN Reason: PAIN LEVEL 6-10 Promethazine HCl (Phenergan Injection -) 12.5 mg IVPB Q6H PRN PRN Reason: NAUSEA AND/OR VOMITING - Objective Vital Signs: Vital Signs Temperature 98.8 F 03/23/18 09:59 Pulse Rate 74 03/23/18 10:00 Respiratory Rate 20 03/23/18 10:00 Blood Pressure 146/78 03/23/18 10:00 O2 Sat by Pulse Oximetry (%) 91 L 03/23/18 09:00 Vital Signs Period Temp Pulse Resp BP Sys/Wray Pulse Ox Last 24 Hr 98.8 F-99.3 F 74-82 18-20 130-146/76-82 91 Constitutional: Yes: Well Nourished, No Distress, Calm Eyes: Yes: Conjunctiva Clear, EOM Intact HENT: Yes: Atraumatic, Normocephalic Neck: Yes: Supple, Trachea Midline Cardiovascular: Yes: Regular Rate and Rhythm, S1, S2 Respiratory: Yes: Regular, CTA Bilaterally Gastrointestinal: Yes: Normal Bowel Sounds, Soft, Abdomen, Obese ...Rectal Exam: Yes: Deferred Genitourinary: No: CVA Tenderness - Left, CVA Tenderness - Right Musculoskeletal: No: Muscle Pain, Muscle Weakness Extremities: No: Cool, Cyanosis Edema: No Peripheral Pulses WNL: Yes Peripheral Pulses: Left Radial: 2+, Right Radial: 2+, Left Doralis Pedis: 2+, Right Dorsalis Pedis: 2+ Integumentary: No: Jaundice, Rash Wound/Incision: Yes: Clean/Dry, Well Approximated, [place] Intact, Open to air Neurological: Yes: Alert, Oriented Psychiatric: Yes: Alert, Oriented Labs: CBC, BMP 03/23/18 05:30 03/23/18 05:30 Problem List - Problems (1) Strangulated inguinal hernia Assessment/Plan: 47 yo female with right inguinal hernia stangulated POD#3 s/p Exploratory laparotomy, segmental ressection of small bowel and primary repair of right inguinal hernia. leukocytosis is resolving. passing flatus. Clear liquids today, regular for breakfast adequate analgesia Ambulate/ OOB encoruage IS discharge at the discretion of the primary team Code(s): K40.30 - UNIL INGUINAL HERNIA, W OBST, W/O GANGR, NOT SPCF RECUR (2) Abdominal pain Code(s): R10.9 - UNSPECIFIED ABDOMINAL PAIN Qualifiers: Abdominal location: epigastric Qualified Code(s): R10.13 - Epigastric pain (3) Inguinal hernia of right side with obstruction Code(s): K40.30 - UNIL INGUINAL HERNIA, W OBST, W/O GANGR, NOT SPCF RECUR (4) Small bowel obstruction Code(s): K56.609 - UNSP INTESTNL OBST, UNSP TO PARTIAL VERSUS COMPLETE OBST
[2018-03-24] MEDS: ONDANSETRON 4 MG/2 ML VIAL IVPB SCH ×3 (02:10→17:21)
[2018-03-24] MEDS: HEPARIN NA (PORCINE) 5,000 UNITS/ML 1ML VIAL SQ SCH ×2 (05:43→14:09)
[2018-03-24 06:26] LABS: HEMATOCRIT 30.3 % (32.4-45.2); HEMOGLOBIN 9.7 GM/dL (10.7-15.3); MEAN CELL VOLUME 84.3 fl (80-96); MEAN PLT VOLUME 9.6 fl (7.5-11.1); PLATELET COUNT 235 K/MM3 (134-434); RDW 15.1 % (11.6-15.6); WHITE BLOOD COUNT 7.8 K/mm3 (4.0-10.0)
[2018-03-24 07:15] LABS: ANION GAP 5 MMOL/L (8-16); BLOOD UREA NITROGEN 5 mg/dL (7-18); CALCIUM 7.9 mg/dL (8.5-10.1); CHLORIDE 100 mmol/L (98-107); CO2 33 mmol/L (21-32); CREATININE 0.4 mg/dL (0.55-1.3); GLUCOSE,RANDOM 112 mg/dL (74-106); POTASSIUM 3.8 mmol/L (3.5-5.1); SODIUM 138 mmol/L (136-145)
[2018-03-24] MEDS ORDERED: PT OWN MED DRAWER 7, Y5N ONE ×2 (08:02→09:07)
[2018-03-24] MEDS: IRON SUCROSE INJECTION 200 MG in SODIUM CHLORIDE 90 ML IVPB SCH (08:08)
--- NOTE | 2018-03-24 08:47 | PN ---
Physical Exam: SUBJECTIVE: Patient seen and examined at bedside- she states she is feeling better. She has not had a bowel movement yet, however, she is passing flatus and getting up out of the bed to walk around. Her pain is being well controlled , only requiring pain medication once overnight. Her diet has been advanced to clear liquids- she denies any CP/SOB/N/V OBJECTIVE: Vital Signs Period Temp Pulse Resp BP Sys/Wray Pulse Ox Last 24 Hr 98.1 F-99.3 F 71-77 17-20 134-155/77-94 91-95 GENERAL: The patient is awake, alert, and fully oriented, in no acute distress. EYES: no scleral icterus. NECK: no JVD appreciated LUNGS: CTA B/L; no rales, rhonchi or wheezing HEART: Regular rate and rhythm, S1, S2 without murmur, rub or gallop. ABDOMEN: Soft, nontender, nondistended, normoactive bowel sounds, no guarding, no rebound, no hepatosplenomegaly, no masses. EXTREMITIES: 2+ pulses, warm, well-perfused, no edema. . PSYCH: Normal mood, normal affect. SKIN: Warm, dry, normal turgor, no rashes or lesions noted Laboratory Results - last 24 hr 03/24/18 03/24/18 05:30 05:30 WBC 7.8 RBC 3.60 Hgb 9.7 L Hct 30.3 L MCV 84.3 MCH 27.0 MCHC 32.0 RDW 15.1 Plt Count 235 MPV 9.6 Sodium 138 Potassium 3.8 Chloride 100 Carbon Dioxide 33 H Anion Gap 5 L BUN 5 L Creatinine 0.4 L Creat Clearance w eGFR > 60 Random Glucose 112 H Calcium 7.9 L Active Medications Generic Name Dose Route Start Last Admin Trade Name Freq PRN Reason Stop Dose Admin Acetaminophen 1,000 mg 03/20/18 03:00 03/20/18 03:13 Ofirmev Injection - IVPB 1,000 mg Q6H PRN Administration PAIN LEVEL 4 - 6 Heparin Sodium (Porcine) 5,000 unit 03/20/18 14:00 03/24/18 05:43 Heparin - SQ 5,000 unit TID [facility] Administration Hydromorphone HCl 2 mg 03/22/18 15:16 03/23/18 20:50 Dilaudid Vial - IVPB 2 mg Q4H PRN Administration PAIN LEVEL 4 - 6 Iron Sucrose 200 mg/ Sodium 100 mls @ 100 mls/hr 03/23/18 08:00 03/24/18 08: 08 Chloride IVPB 03/28/18 07:59 100 mls/hr DAILY@0800 [facility] Administration Potassium Chloride/Dextrose/Sod Cl 10 meq in 1,000 mls @ 83 mls/hr 03/23/18 08 :00 03/23/18 23:50 D5-1/2ns+10 Meq Kcl - IV 83 mls/hr ASDIR [facility] Administration Ondansetron HCl 8 mg 03/20/18 03:00 03/24/18 02:10 Zofran Injection IVPB 8 mg Q8H-IV [facility] Administration Oxycodone HCl 10 mg 03/22/18 15:19 03/23/18 17:32 Roxicodone - PO 10 mg Q3H PRN Administration PAIN LEVEL 6-10 Promethazine HCl 12.5 mg 03/20/18 02:58 Phenergan Injection - IVPB Q6H PRN NAUSEA AND/OR VOMITING ASSESSMENT/PLAN: 47 y/o female with no significant PMH presents to the ED with abdominal pain found to a strangualted inguinal hernia requiring ex-lap and small bowel resection 1) R Inguinal Hernia, POD 4 s/p Exlap, small bowel resection patient has passed flatus and diet has been advanced to clears, not having bowel movement yet PO oxycodone PRN for pain D51/2 NS+KCL @83mls/hr Zofran and Phenergan for nausea control Surgery on board; appreciate recommendations 2) Normocytic anemia no active signs of bleeding Hgb remains stable monitor for signs of bleeding started IV iron- iron studies show an iron deficiency anemia FEN: Fluids: D51/2Ns+KCL @83mls/hr Electrolyte abnormalities: hypokalemia and hypophasphatemia- repleted Nutrition: clear diet PPX: DVT - Heparin SQ Problem List - Problems (1) Inguinal hernia of right side with obstruction Code(s): K40.30 - UNIL INGUINAL HERNIA, W OBST, W/O GANGR, NOT SPCF RECUR (2) Strangulated inguinal hernia Code(s): K40.30 - UNIL INGUINAL HERNIA, W OBST, W/O GANGR, NOT SPCF RECUR
--- NOTE | 2018-03-24 12:29 | PN ---
Teaching Attending Note Name of Resident: Hector Norwood ATTENDING PHYSICIAN STATEMENT I saw and evaluated the patient. I reviewed the resident's note and discussed the case with the resident. I agree with the resident's findings and plan as documented. SUBJECTIVE:abdominal pain resolved. tolerated liquid diet last night for dinner. had 2 BM today. denies CP, SOB< fever, chills, N/V/C/D OBJECTIVE: Last Vital Signs Temp Pulse Resp BP Pulse Ox 98.7 F 73 18 136/87 95 03/24/18 08:15 03/24/18 08:15 03/24/18 08:15 03/24/18 08:15 03/23/18 21:00 General NAD Abdomen soft NT/ND hypoactive BS ASSESSMENT AND PLAN: 47yo F wtih PMH PMH obesity presented to the ER wt abdominal pain x2 days and found to have strangulated inguinal hernia 1. Strangulated inguinal hernia- s/p exlap with small bowel resection and R inguinal hernia repair 03/20. NGT removed and started on clears last night. had BM today. now advanced to regular diet. ambulating halls without difficulty. as per surgery can possible go home today if tolerates diet. can f/u with surgery as outpatient. 2. Iron def anemia- no signs of bleeding. Hgb is stable. venofer day #2. will d/ c with iron supplements. advised of side effects of constipation and black stools. encourage to take stool softeners if needed to have regular BM. will need Iron panel repeated in 3 months. 3. hypokalemia- resolved 4. Obesity- BMI 30. discussed lifestyle modifications. diet and exercise. 5. DVT ppx- hep sq 6. possible d/c later today if tolerates diet
[2018-03-24] MEDS: ACETAMINOPHEN 1000 MG/100 ML VIAL (NON FORMULARY) IVPB PRN (14:25)
--- NOTE | 2018-03-24 15:08 | DS ---
Physical Exam: SUBJECTIVE: Patient seen and examined at bedside. She states she is feeling much better- she had multiple bowel movements overnight and is tolerating a regular diet. She has minimal pain and has been getting up and walking around. She denies any CP/SOB/N/V fevers or chills. OBJECTIVE: Vital Signs Period Temp Pulse Resp BP Sys/Wray Pulse Ox Last 24 Hr 98.1 F-99.3 F 71-77 17-18 134-155/77-94 95 PHYSICAL EXAM GENERAL: The patient is awake, alert, and fully oriented, in no acute distress. EYES: no scleral icterus . NECK: no JVD appreciated LUNGS: CTA B/L; no rales, rhonchi or wheezing HEART: Regular rate and rhythm, S1, S2 without murmur, rub or gallop. ABDOMEN: Soft, nontender, nondistended, normoactive bowel sounds, no guarding, no rebound, no hepatosplenomegaly, no masses. EXTREMITIES: 2+ pulses, warm, well-perfused, no edema. PSYCH: Normal mood, normal affect. SKIN: Warm, dry, normal turgor, no rashes or lesions noted. LABS Laboratory Results - last 24 hr 03/24/18 03/24/18 05:30 05:30 WBC 7.8 RBC 3.60 Hgb 9.7 L Hct 30.3 L MCV 84.3 MCH 27.0 MCHC 32.0 RDW 15.1 Plt Count 235 MPV 9.6 Sodium 138 Potassium 3.8 Chloride 100 Carbon Dioxide 33 H Anion Gap 5 L BUN 5 L Creatinine 0.4 L Creat Clearance w eGFR > 60 Random Glucose 112 H Calcium 7.9 L HOSPITAL COURSE: Patient came to the hospital with a 2 day history of epigastric and RLQ pain. The pain had started after she had eaten some questionable food at a restaurant. The pain was associated with diarrhea. On imaging patient was found to have a R strangulated and incarcerated inguinal hernia. She was immediately taken to the OR for ex-lap and small bowel resection. There were no complications from surgery. She was put on IV fluids, given dilaudid GLASS SANDER pump for pain and zofran PRN for nausea. It took patient 2 days for her diet to be advanced and to be taken off the GLASS SANDER pump. She clinically was much improved, tolerating regular diet and has a follow up with Dr. Warner the general surgeon. Date of Admission:03/20/18 Date of Discharge: 03/24/18 Minutes to complete discharge: 30 Discharge Summary Reason For Visit: ABDOMINAL PAIN, SMALL BOWEL OBSTRUCTION Current Active Problems Abdominal pain (Acute) Inguinal hernia of right side with obstruction (Acute) Small bowel obstruction (Acute) Strangulated inguinal hernia (Acute) Condition: Improved - Instructions Diet, Activity, Other Instructions: Postoperative instructions: You had a Exploratory Laparotomy, small bowel resection on 03/20/[address] Romario Hogan of [facility]. Activity: Resume your usual activities gradually, but no heavy exertion or lifting more than 10-15 pounds for 4-6 weeks. Eat lightly at first, but advance to your usual diet as tolerated. Pain: For pain, you may use and alternate Tylenol (acetaminophen) 1-2 pills and/ or ibuprofen 200 mg (1-3 pills) every 6 hours each as needed; this means that you can take one OR the other at 3-hour intervals. If you are prescribed a Tylenol/narcotic combination for severe pain, use it instead of plain Tylenol as needed and switch back when your pain starts decreasing. Do not take more than 4000 mg of acetaminophen in a day. Take medications as prescribed or indicated on the labeling. Follow-up: Call Dr. Hogan' office at [phone] to make your postop appointment (Thursday in approximately 2 weeks after surgery as advised). Clinic is held in the [facility] on the first floor of [facility]. Call the office if you have: * increasing pain not responsive to pain medication * fever of 101F or higher * vomiting * unusual or increasing bleeding or drainage from wounds * increasing redness or swelling at wound sites * inability to urinate Medical Instructions Your blood counts and iron levels were found to be low while you were admitted. This is suggestive of iron-deficiency anemia. Please pepper picker Ferrous sulfate 325mg and take one a day to help build your iron levels. This medication can cause constipation and dark stools. Please take miralax to help with the constipation associated with taking iron pills. Please follow with your primary care physician for followup, you should have your iron-levels checked again in 3 months. Also, see your primary medical doctor within 1-2 weeks. Referrals: Romario Hogan MD [Staff Physician] - Disposition: HOME - Home Medications Comprehensive Discharge Medication List: Ambulatory Orders Ferrous Sulfate 325 mg PO DAILY #30 tablet 03/24/18 Polyethylene Glycol 3350 [Miralax (For Daily Use) -] 17 gm PO BID #1 bottle Problem List - Problems (1) Inguinal hernia of right side with obstruction Code(s): K40.30 - UNIL INGUINAL HERNIA, W OBST, W/O GANGR, NOT SPCF RECUR (2) Strangulated inguinal hernia Code(s): K40.30 - UNIL INGUINAL HERNIA, W OBST, W/O GANGR, NOT SPCF RECUR This patient is new to me today: No Emergency Visit: Yes ED Registration Date: 03/20/18 Care time: The patient presented to the Emergency Department on the above date and was hospitalized for further evaluation of their emergent condition. Critical Care patient: No - Discharge Referral Referred to [facility] Med P.C.: No
[2018-03-24 18:37] VITALS: BP 166/84; PULSE 67; TEMP 98.4
--- NOTE | 2018-04-19 19:30 | OP ---
DATE OF OPERATION: 03/20/2018 PREOPERATIVE DIAGNOSIS: Strangulated right inguinal hernia. POSTOPERATIVE DIAGNOSIS: Strangulated right inguinal hernia. PROCEDURE: Exploratory laparotomy, small bowel resection with primary stapled anastomosis, and primary right inguinal hernia repair. No mesh. ATTENDING SURGEON: Romario Hogan MD IS MANAGER: None. ANESTHESIOLOGIST: Mynor Mckeon MD ANESTHESIA TYPE: General. ESTIMATED BLOOD LOSS: 20 mL INTRAVENOUS FLUIDS: 1700 mL of crystalloid. DRAINS: 450 mL via Hill, which was during the case, subsequently removed. IMPLANTS: None. SPECIMENS: Small bowel, segment of small intestine. INDICATIONS: Patient is a 47-year-old female presenting with a history of a right inguinal hernia, which is acutely incarcerated and strangulated on CT scan. She was counseled regarding the risks, benefits, and alternatives. It was explained that she would require open exploration and primary repair. She signed informed consent and was taken for the procedure. DESCRIPTION OF PROCEDURE: Patient was brought to the operating room and placed in the supine position on the operating table with the arms extended to 90 degrees perpendicular to the body's midline axis. Patient had lower extremity SCDs placed. She was induced with general anesthesia, endotracheally intubated without incident by anesthesia. She had a Hill placed for subsequent removal. Anterior abdominal wall was clipped, prepped, and draped in the standard surgical fashion. We planned for an infraumbilical midline approach. After formal timeout was completed, identified the operative site and procedure, we began first with a lower midline incision, which was incised with a 10-blade scalpel and deepened through the subcutaneous tissue. Care was taken to dissect down to the rectus midline, at which point, we proceeded with opening the abdomen in a step-fernandez fashion to identify the preperitoneal fascia, which was elevated into the field and opened with Metzenbaum scissors. We then used a finger to clear and protect the abdominal viscera both proximally and distally. With the midline opened, it was elevated and then we turned our attention to the right lower quadrant. With retractor in place, a loop of small bowel was identified, which appeared to be entering the internal ring on the inguinal canal. This small bowel was guided out carefully into the abdomen. It appeared to be a Dunham-type defect with a segment of small bowel, which was midileum. This segment was identified and then isolated. It was stapled with an EndoGIA size 60 stapler, both proximal and distal to the area of viability. The mesentery was then taken very close to the bowel with LigaSure device to seal it. Once the cut ends of ileum were identified, the remainder of the exploration of the abdomen was uneventful. All abdominal viscera appeared both viable and healthy. No other defects or sites of obstruction were identified. We then turned our attention to irrigation of the abdomen. The small bowel loops were laid side by side with a plan for stapled primary anastomosis. Then, 3-0 silk stitches were used to approximate the cain to create a crotch stitch. We then turned our attention to fashioning the stapled anastomosis using EndoGIA sutures. Enterotomies were made and the stapler was used to create a single lumen between the 2 lumens of bowel. A TA size 60 stapler was then used to seal the remaining open enterotomy. Once complete, the segment of small bowel and the remnant of the TA stapled anastomosis was sent for pathologic diagnosis. We proceeded then with irrigation again of the abdomen and closure in the midline. Number 1 looped PDS sutures were used from the superior and inferior pole of the abdominal defect and used to close towards the midline. Once completed, they were tied and this closed the abdomen. Care was taken to protect the abdominal viscera in place. We then proceeded with irrigation and closure of the skin. The skin was stapled to approximate it. Skin was cleaned and a sterile dressing was placed. The patient was awoken from general anesthesia and extubated in the operating room. She tolerated the procedure well and was stable throughout. She returned to the recovery room in stable condition. MD BEATRICE Duggan/[id number]
== END 2018-03-24 19:07 | disposition home or self-care (01) | DRG 221 ==
LOC: JER 18:20 → JERBED 03-20 00:04 → UNDOADMIN 03-20 00:58 → J8W 03-20 04:22
PROVIDERS: ADMIT Internal Medicine; ATTEND Internal Medicine
PROC: 0YU50JZ Supplement Right Inguinal Region with Synthetic Substitute, Open Approach (ICD-10-PCS; 2018-03-20)
PROC: 0WJJ0ZZ Inspection of Pelvic Cavity, Open Approach (ICD-10-PCS; 2018-03-20)
PROC: 0DB80ZZ Excision of Small Intestine, Open Approach (ICD-10-PCS; principal; 2018-03-20 01:00)
DX: K40.30 Unilateral inguinal hernia, with obstruction, without gangrene, not specified as recurrent (principal); K56.699 Other intestinal obstruction unspecified as to partial versus complete obstruction; E66.9 Obesity, unspecified; Z68.30 Body mass index [BMI] 30.0-30.9, adult; I69.398 Other sequelae of cerebral infarction; E87.6 Hypokalemia; D50.9 Iron deficiency anemia, unspecified; D72.829 Elevated white blood cell count, unspecified
CPT/HCPCS: 36415; 74177-TC; 80048; 80053; 81003; 81015; 82728; 83540; 83550; 83605; 83690; 83735; 84100; 84703; 85025; 85027; 88307-TC; 94760; 99282-25; J0131; J1644; J1756; Q9967

== ENCOUNTER 2018-08-04 22:55 | Inpatient (IN) | payer OTHER ==
--- NOTE | 2018-08-05 00:03 | PDOC ---
*Physical Exam - Vital Signs Last Vital Signs Temp Pulse Resp BP Pulse Ox 98.7 F 66 18 160/88 100 08/04/18 22:58 08/04/18 22:58 08/04/18 22:58 08/04/18 22:58 08/04/18 23:30 ED Treatment Course - LABORATORY CBC & Chemistry Diagram: 08/05/18 00:50 08/05/18 00:50 Medical Decision Making - Medical Decision Making 08/05/18 00:03 Patient seen by the advanced practice provider under my direct supervision. Ancillary testing reviewed as necessary. I agree with plan as outlined by the advanced practice provider. *DC/Admit/Observation/Transfer Diagnosis at time of Disposition: Abdominal pain - Referrals - Patient Instructions - Post Discharge Activity
[2018-08-05] MEDS ORDERED: ONDANSETRON 4 MG/2 ML VIAL IVPUSH ONE (00:35)
[2018-08-05] MEDS ORDERED: SODIUM CHLORIDE 1,000 ML IV STA (00:35)
[2018-08-05] MEDS ORDERED: ACETAMINOPHEN 1000 MG/100 ML VIAL (NON FORMULARY) IVPB ONE (00:36)
[2018-08-05] MEDS ORDERED: ONDANSETRON 4 MG/2 ML VIAL ONE ×2 (00:55→05:56)
[2018-08-05] MEDS ORDERED: ACETAMINOPHEN INJECTION 100 ML IVPB ONE (00:55)
[2018-08-05 00:59] LABS: BASO % 0.7 % (0-2.0); EOS % 0.1 % (0-4.5); HEMOGLOBIN 14.7 GM/dL (10.7-15.3); LYMPH % 8.4 % (8-40); MCH 30.8 pg (25.7-33.7); MCHC 34.1 g/dl (32.0-36.0); MEAN CELL VOLUME 90.5 fl (80-96); NEUT % 85.8 % (42.8-82.8); PLATELET COUNT 267 K/MM3 (134-434); RBC 4.75 M/mm3 (3.60-5.2); RDW 13.1 % (11.6-15.6); WHITE BLOOD COUNT 14.1 K/mm3 (4.0-10.0)
--- NOTE | 2018-08-05 01:14 | PDOC ---
History of Present Illness - General Chief Complaint: Pain Stated Complaint: ABD PAIN/VOMITING Time Seen by Provider: 08/04/18 23:55 History Source: Patient Exam Limitations: No Limitations Past History - Past Medical History Allergies/Adverse Reactions: Allergies Allergy/AdvReac Type Severity Reaction Status Date / Time aspirin Allergy Severe Swelling Verified 08/04/18 23:02 Home Medications: Ambulatory Orders NK [No Known Home Medication] 08/04/18 COPD: No - Surgical History Abdominal Surgery: Yes - Immunization History Immunization Up to Date: Yes - Suicide/Smoking/Psychosocial Hx Smoking History: Never smoked Have you smoked in the past 12 months: No Information on smoking cessation initiated: No Hx Alcohol Use: No Drug/Substance Use Hx: No *Physical Exam - Vital Signs Last Vital Signs Temp Pulse Resp BP Pulse Ox 98.7 F 66 18 160/88 100 08/04/18 22:58 08/04/18 22:58 08/04/18 22:58 08/04/18 22:58 08/04/18 23:30 - Physical Exam General Appearance: No: Apparent Distress Respiratory/Chest: positive: Lungs Clear, Normal Breath Sounds. negative: Respiratory Distress Cardiovascular: positive: Regular Rhythm, Regular Rate, S1, S2. negative: Murmur Gastrointestinal/Abdominal: positive: Normal Bowel Sounds, Tender (mild TTP along periumbilical and RLQ, no RUQ TTP, neg butler's sign), Flat, Soft. negative: Distended, Guarding, Rebound, Mass Musculoskeletal: negative: CVA Tenderness Integumentary: positive: Normal Color Neurologic: positive: Alert, Normal Mood/Affect Moderate Sedation - Procedure Monitoring Vital Signs: Procedure Monitoring Vital Signs Temperature 98.7 F 08/04/18 22:58 Pulse Rate 66 08/04/18 22:58 Respiratory Rate 18 08/04/18 22:58 Blood Pressure 160/88 08/04/18 22:58 O2 Sat by Pulse Oximetry (%) 100 08/04/18 23:30 ED Treatment Course - LABORATORY CBC & Chemistry Diagram: 08/05/18 00:50 08/05/18 00:50 - ADDITIONAL ORDERS Additional order review: 08/05/18 00:50 RBC 4.75 MCV 90.5 MCHC 34.1 RDW 13.1 D MPV 10.0 Neutrophils % 85.8 H Lymphocytes % 8.4 Monocytes % 5.0 Eosinophils % 0.1 D Basophils % 0.7 D - Medications Given in the ED: ED Medications Discontinued Medications Generic Name Dose Route Start Last Admin Trade Name Lisa PRN Reason Stop Dose Admin Acetaminophen 1,000 mg 08/05/18 00:36 08/05/18 01:07 Ofirmev Injection - IVPB 08/05/18 00:37 1,000 mg ONCE ONE Administration Ondansetron HCl 4 mg 08/05/18 00:35 08/05/18 01:07 Zofran Injection IVPUSH 08/05/18 00:36 4 mg ONCE ONE Administration Medical Decision Making - Medical Decision Making 48 y/o F with hx of SBO, R strangulated and incarcerated inguinal hernia s/p small bowel resection 03/2018 presents with R sided abdominal pain from today along with 3 episodes of NBNB emesis. States pain feels slightly similar to the pain when she had the hernia. Denies fever, sob, cp, diarrhea, constipation, urinary complaints. Patient had BM today. Consider SBO Plan: Labs, IVF, Zofran, CT A/P 08/05/18 01:11 CT A/P results: Minimally dilated small bowel all four quadrants with transition point in right mid abdomen at the site of an anastomotic suture line in small bowel, compatible with small bowel obstruction. Findings concerning for SBO Paged surgery, Dr. Hogan 08/05/18 05:04 Case d/w Dr. Hogan who will see patient in AM Will place NGT and admit 08/05/18 05:30 *DC/Admit/Observation/Transfer Diagnosis at time of Disposition: SBO (small bowel obstruction) - Discharge Dispostion Condition at time of disposition: Stable Decision to Admit order: Yes - Referrals - Patient Instructions - Post Discharge Activity
[2018-08-05 01:19] LABS: ALBUMIN 4.1 g/dl (3.4-5.0); ALK PHOS 74 U/L (45-117); ANION GAP 3 MMOL/L (8-16); BILIRUBIN,TOTAL 0.2 mg/dL (0.2-1); BLOOD UREA NITROGEN 13 mg/dL (7-18); CALCIUM 9.1 mg/dL (8.5-10.1); CHLORIDE 104 mmol/L (98-107); CO2 31 mmol/L (21-32); CREATININE 0.7 mg/dL (0.55-1.3); GLUCOSE,RANDOM 123 mg/dL (74-106); LIPASE 133 U/L (73-393); POTASSIUM 4.6 mmol/L (3.5-5.1); SGOT/AST 13 U/L (15-37); SGPT/ALT 27 U/L (13-61); SODIUM 138 mmol/L (136-145); TOT PROT 9.1 g/dl (6.4-8.2)
[2018-08-05 01:34] LABS: HCG,QUALITATIVE URINE Negative
[2018-08-05 01:55] LABS: URINE APPEARANCE SLCLOUDY; URINE BILIRUBIN NEGATIVE (<2.0 mg/dL); URINE COLOR YELLOW; URINE GLUCOSE (UA) NEGATIVE (NEGATIVE); URINE KETONE NEGATIVE (NEGATIVE); URINE LEUK ESTERASE NEGATIVE (NEGATIVE); URINE NITRITE NEGATIVE (NEGATIVE); URINE PROTEIN 1+ (NEGATIVE)
[2018-08-05 01:59] LABS: EPI CELLS RARE /HPF (FEW); GRANULAR CASTS 1 /lpf; URINE HYALINE CAST 10 /lpf; URINE MUCUS FEW
--- NOTE | 2018-08-05 05:46 | HP ---
CHIEF COMPLAINT:abdominal pain PCP:none HISTORY OF PRESENT ILLNESS: Patient is a 48 year old, micronesian speaking female with history of strangulated and incarcerated inguinal hernia s/p bowel resection (03/2018), presented to the ED due to severe, diffuse abdominal pain that started around 8 pm last night. Patient reported pain occurred suddenly 03/10, constant, cramping, worse at the steph-umbilical area, nonradiating, with no aggravating or alleviating symptoms. This was accompanied by 2 episodes of NBNB vomiting at home and 1 episode upon arrival at the ED. Last bowel movement was yesterday morning. Patient denies any fever, chills, headache, dizziness, chest pain, SOB, palpitations, diarrhea, constipation, urinary symptoms. ER course was notable for: (1)WBC: 14.1 (2)CT abdomen: minimally dilated small bowel on all 4 quadrants with transition point in the right mid abdomen at the side of an anastomotic suture in the small bowel, compatible with SBO (3)IV Zofran, Tylenol, IV NS x1L (4)EKG: NSR, no acute ST-T wave changes, QTc 421 Recent Travel:denies PAST MEDICAL HISTORY: None PAST SURGICAL HISTORY: Incarcerated hernia s/p bowel resection (03/2018) Social History: Smoking:denies Alcohol:denies Drugs: denies Family History: Mother - DM Father - heart disease Allergies aspirin Allergy (Severe, Verified 08/04/18 23:02) Swelling HOME MEDICATIONS: Home Medications Medication Instructions Recorded NK [No Known Home Medication] 08/04/18 REVIEW OF SYSTEMS CONSTITUTIONAL: Absent: fever, chills, diaphoresis, generalized weakness, malaise, loss of appetite, weight change HEENT: Absent: rhinorrhea, nasal congestion, throat pain, throat swelling, difficulty swallowing, mouth swelling, ear pain, eye pain, visual changes CARDIOVASCULAR: Absent: chest pain, syncope, palpitations, irregular heart rate, lightheadedness , peripheral edema RESPIRATORY: Absent: cough, shortness of breath, dyspnea with exertion, orthopnea, wheezing, stridor, hemoptysis GASTROINTESTINAL:abdominal pain, nausea, vomiting Absent: abdominal distension, diarrhea, constipation, melena, hematochezia GENITOURINARY: Absent: dysuria, frequency, urgency, hesitancy, hematuria, flank pain, genital pain MUSCULOSKELETAL: Absent: myalgia, arthralgia, joint swelling, back pain, neck pain SKIN: Absent: rash, itching, pallor HEMATOLOGIC/IMMUNOLOGIC: Absent: easy bleeding, easy bruising, lymphadenopathy, frequent infections ENDOCRINE: Absent: unexplained weight gain, unexplained weight loss, heat intolerance, cold intolerance NEUROLOGIC: Absent: headache, focal weakness or paresthesias, dizziness, unsteady gait, seizure, mental status changes, bladder or bowel incontinence PSYCHIATRIC: Absent: anxiety, depression, suicidal or homicidal ideation, hallucinations. PHYSICAL EXAMINATION Vital Signs - 24 hr 08/04/18 08/04/18 22:58 23:30 Temperature 98.7 F Pulse Rate 66 Respiratory 18 Rate Blood Pressure 160/88 O2 Sat by Pulse 100 100 Oximetry (%) GENERAL: Awake, alert, and fully oriented, in no acute distress. HEAD: Normal with no signs of trauma. EYES: PERRLA, EOMI, sclera anicteric, conjunctiva clear. EARS, NOSE, THROAT: Ears normal, oropharynx clear without exudates. Moist mucous membranes. NECK: Normal range of motion, supple without lymphadenopathy, JVD, or masses. LUNGS: Breath sounds equal, clear to auscultation bilaterally. HEART: Regular rate and rhythm, normal S1 and S2 without murmur, rub or gallop. ABDOMEN: Soft, +diffuse tenderness worse on the steph-umbilical area, not distended, + bowel sounds, no guarding, no masses. MUSCULOSKELETAL: Normal range of motion at all joints. No CVA tenderness. UPPER EXTREMITIES: 2+ pulses, warm, well-perfused. No peripheral edema. LOWER EXTREMITIES: 2+ pulses, warm, well-perfused. No peripheral edema. NEUROLOGICAL: Cranial nerves II-XII intact. Motor strength 5/5, sensation intact. Normal speech. Normal gait. PSYCHIATRIC: Cooperative. Good eye contact. Appropriate mood and affect. SKIN: Warm, dry, normal turgor, no rashes or lesions noted. Laboratory Results - last 24 hr 08/05/18 08/05/18 08/05/18 00:50 00:50 01:00 WBC 14.1 H RBC 4.75 Hgb 14.7 Hct 43.0 D MCV 90.5 MCH 30.8 D MCHC 34.1 RDW 13.1 D Plt Count 267 MPV 10.0 Absolute Neuts (auto) 12.1 H Neutrophils % 85.8 H Lymphocytes % 8.4 Monocytes % 5.0 Eosinophils % 0.1 D Basophils % 0.7 D Nucleated RBC % 0 Sodium 138 Potassium 4.6 Chloride 104 Carbon Dioxide 31 Anion Gap 3 L BUN 13 Creatinine 0.7 Creat Clearance w eGFR > 60 Random Glucose 123 H Calcium 9.1 Total Bilirubin 0.2 AST 13 L ALT 27 Alkaline Phosphatase 74 Total Protein 9.1 H Albumin 4.1 Lipase 133 Urine Color Yellow Urine Appearance Slcloudy Urine pH 5.0 Ur Specific [place] 1.029 Urine Protein 1+ H Urine Glucose (UA) Negative Urine Ketones Negative Urine Blood Negative Urine Nitrite Negative Urine Bilirubin Negative Urine Urobilinogen 2.0 H Ur Leukocyte Esterase Negative Urine WBC (Auto) 1 Urine RBC (Auto) <1 Ur Epithelial Cells Rare Hyaline Casts 10 Granular Casts 1 Urine Mucus Few Urine HCG, Qual Negative ASSESSMENT/PLAN: Patient is a 48 year old, micronesian speaking female with history of strangulated and incarcerated inguinal hernia s/p bowel resection (03/2018), presented to the ED due to severe, diffuse abdominal pain that started around 8 pm last night. #Small bowel obstruction -CT abdomen: minimally dilated small bowel on all 4 quadrants with transition point in the right mid abdomen at the side of an anastomotic suture in the small bowel, compatible with SBO -Leukocytosis, likely reactive -IV fluid hydration -NPO -NG tube on low suction -Will order coags, type and screen -IV tylenol PRN for pain -IV Zofran PRN for nausea/vomiting -Surgery (Dr. Hogan) consulted. #FEN -IV LR @100cc/hr -Electrolytes wnl, routine bmp monitoring -NPO #Prophylaxis -SCDs, early ambulation #Disposition -full code -med surg Visit type - Emergency Visit Emergency Visit: Yes ED Registration Date: 08/05/18 Care time: The patient presented to the Emergency Department on the above date and was hospitalized for further evaluation of their emergent condition. - New Patient This patient is new to me today: Yes Date on this admission: 08/06/18 - Critical Care Critical Care patient: No
--- NOTE | 2018-08-05 06:02 | CONSULT ---
Consult Consult Specialty:: General Surgery Reason for Consultation:: Abdominal pain - History of Present Illness Chief Complaint: vomiting History of Present Illness: 48 year old, nepali speaking female with history of strangulated and incarcerated inguinal hernia s/p bowel resection (03/2018), presented to the ED due to severe, diffuse abdominal pain that started around 8 pm last night. Patient reported pain occurred suddenly 10/10, constant, cramping, worse at the steph-umbilical area, nonradiating, with no aggravating or alleviating symptoms. This was accompanied by 2 episodes of NBNB vomiting at home and 1 episode upon arrival at the ED. Last bowel movement was yesterday morning. Patient denies any fever, chills, headache, dizziness, chest pain, SOB, palpitations, diarrhea , constipation, urinary symptoms. - History Source History Provided By: Patient, Medical Record Limitations to Obtaining History: No Limitations - Past Surgical History Past Surgical History: Yes: Hernia Repair - Alcohol/Substance Use Hx Alcohol Use: No - Smoking History Smoking history: Never smoked Have you smoked in the past 12 months: No - Social History Usual Living Arrangement: Alone Place of : Other ([facility]) History of Recent Travel: No Home Medications - Allergies Allergies/Adverse Reactions: Allergies Allergy/AdvReac Type Severity Reaction Status Date / Time aspirin Allergy Severe Swelling Verified 08/04/18 23:02 - Home Medications Home Medications: Ambulatory Orders NK [No Known Home Medication] 08/04/18 Review of Systems - Review of Systems Constitutional: denies: Chills, Fever Eyes: denies: Blind Spots, Recent Change in Vision HENT: denies: Difficult Swallowing, Throat Pain, Toothache Neck: denies: Decreased ROM, Pain on Movement, Tenderness Cardiovascular: denies: Chest Pain, Palpitations Respiratory: denies: Cough, SOB Gastrointestinal: reports: Abdominal Pain, Nausea, Vomiting. denies: Constipation, Diarrhea Genitourinary: denies: Discharge, Dysuria Breasts: reports: No Symptoms Reported. denies: Pain Musculoskeletal: denies: Back Pain, Muscle Pain Integumentary: denies: Bruising, Lesions, Lump Neurological: denies: Seizure, Syncope Endocrine: denies: Unexplained Weight Gain, Unexplained Weight Loss Hematology/Lymphatic: denies: Easily Bruised, Excessive Bleeding Psychiatric: denies: Anxiety, Depression Physical Exam Vital Signs: Vital Signs Temperature 98.7 F 08/04/18 22:58 Pulse Rate 66 08/04/18 22:58 Respiratory Rate 18 08/04/18 22:58 Blood Pressure 160/88 08/04/18 22:58 O2 Sat by Pulse Oximetry (%) 100 08/04/18 23:30 Constitutional: Yes: Well Nourished, No Distress, Calm Eyes: Yes: Conjunctiva Clear, EOM Intact HENT: Yes: Atraumatic, Normocephalic Neck: Yes: Supple, Trachea Midline Cardiovascular: Yes: Regular Rate and Rhythm, S1, S2 Respiratory: Yes: Regular, CTA Bilaterally Gastrointestinal: Yes: Normal Bowel Sounds, Soft, Hernia (Right inguinal). No: Tenderness, Tenderness, Epigastrium, Tenderness, Rebound ...Rectal Exam: Yes: Deferred Renal/: No: CVA Tenderness - Left, CVA Tenderness - Right Breast(s): No: Discharge from Nipple, Gynecomastia Musculoskeletal: No: Back Pain, Joint Swelling Extremities: No: Cool, Cyanosis Edema: No Peripheral Pulses WNL: Yes Integumentary: No: Incision, Jaundice Wound/Incision: Yes: Clean/Dry Neurological: Yes: Alert, Oriented Psychiatric: Yes: Alert, Oriented Labs: CBC, BMP 08/05/18 00:50 08/05/18 00:50 Imaging - Results Cat Scan: Report Reviewed, Image Reviewed (right inguinal hernia previous then before) Problem List - Problems (1) Inguinal hernia of right side with obstruction Assessment/Plan: 48yo female with abdominal pain and persistance of a right inguinal hernia that was smaller but persistent after a temporizing primary repair which was done during a segmental SB resection for a strangulated segment. Given this second acute presentation, urgent repair is indicated. NPO and IVF hydration analgesia OR for urgent right inguinal hernia repair with mesh Discussed with patient risks, benefits and alternatives of aforemention procedure, including but not limited to bleeding, infection, injury to adjacent structures, leak or injury, intraabdominal abscess, incisional hernia, need for further procedures, ; alternatives include antibiotics, delayed or no surgery - risks of this include failure of nonoperative therapy, perforation, sepsis, recurrence, . Patient desires to proceed with operation - will take to OR for above. Informed consent signed for same. Thank you for the opportunity to participate in the care of this patient. Code(s): K40.30 - UNIL INGUINAL HERNIA, W OBST, W/O GANGR, NOT SPCF RECUR (2) Obesity (BMI 30.0-34.9) Code(s): E66.9 - OBESITY, UNSPECIFIED (3) Abdominal pain Code(s): R10.9 - UNSPECIFIED ABDOMINAL PAIN (4) Small bowel obstruction Code(s): K56.609 - UNSP INTESTNL OBST, UNSP TO PARTIAL VERSUS COMPLETE OBST (5) Strangulated inguinal hernia Code(s): K40.30 - UNIL INGUINAL HERNIA, W OBST, W/O GANGR, NOT SPCF RECUR
[2018-08-05] MEDS ORDERED: PIPERACILLIN/TAZOB 4.5 GM 4.5 GM in DEXTROSE 5%-WATER 100 ML IVPB ONE (06:03)
[2018-08-05] MEDS ORDERED: ONDANSETRON 4 MG/2 ML VIAL IVPUSH PRN (06:08)
--- NOTE | 2018-08-05 06:26 | PN ---
Teaching Attending Note Name of Resident: Keisha Mitchell ATTENDING PHYSICIAN STATEMENT I saw and evaluated the patient. I reviewed the resident's note and discussed the case with the resident. I agree with the resident's findings and plan as documented. SUBJECTIVE: Seen and examined; please refer to resident note for further historical information. Briefly, this is a 48 y/o female presenting to the ER with a CC of abdominal pain and vomiting with SBO visualized with transition in R-abdomen (near where PSH indicates old instrumentation with repair of strangulated R- inguinal hernia this last March done by Dr. Hogan); she hasn't had BM since last night, no flatus since this morning. Sx improved here with analgesia/ antiemetics. Dr. Hogan has been made aware by the ER She has no other complaints. Hemodynamically stable and afebrile in the ER. 10 sys ROS done and negative aside from HPI PMH, PSH, Family hx, Social hx reviewed Medication list reviewed; pending reconciliation OBJECTIVE: VS, labs, imaging reviewed NAD, AAO, resting in bed Slightly tympanic with reduced but audible BS and diffuse mild tenderness RRR s1/2 no mgr NC AT EOMI PERRLA CN2-12 wnl, no fnd Normal mood, appropriate behavior Euvolemic without pedal edema/jvd EKG pending CT reviewed; final report pending ASSESSMENT AND PLAN: Patient presents with abdominal pain and vomitting found to have a recurrent SBO (R-sided transition point; hx hernia repair and prior SBO). Surgery is aware. She remains stable and will be monitored on the floor. 1) Small Bowel Obstruction -Likely due to adhesions, etc. Surgery aware -NPO, on maintainence fluids. Pain control and antiemetics. -Defer ultimate management to surgical services. 2) HTN -160 SBP in the ER; no documented home meds. Can keep <160 with PRNs; of course consider pain as an underlying cause. -If still elevated even with #1 resolving, consider DC on home medications. 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
[2018-08-05] MEDS ORDERED: PIPERACILLIN/TAZOB 4.5 GM 4.5 GM/100 ML BAG IVPB ONE (06:29)
[2018-08-05] MEDS: LACTATED RINGERS SOLUTION 1,000 ML IV SCH ×2 (06:43→17:37)
[2018-08-05 06:57] LABS: INR 1.02 (0.83-1.09)
[2018-08-05 07:00] LABS: ACTIVATED PTT 25.8 SECONDS (25.2-36.5)
--- NOTE | 2018-08-05 11:19 | PN ---
Teaching Attending Note Name of Resident: Gerardo Doyle ATTENDING PHYSICIAN STATEMENT I saw and evaluated the patient. I reviewed the resident's note and discussed the case with the resident. I agree with the resident's findings and plan as documented. SUBJECTIVE:pain improved. now passing flatus. denies Cp, SOB, fever, chills, N/V OBJECTIVE: Last Vital Signs Temp Pulse Resp BP Pulse Ox 99.1 F 73 18 121/80 96 08/05/18 14:20 08/05/18 14:20 08/05/18 10:00 08/05/18 14:20 08/05/18 10:00 General NAD CV S1 S2 RRR no murmur/rub/gallop Lungs CTA B/L no wheezing/rales/rhonchi Abdomen soft NT/ND +BS dull to percussion ASSESSMENT AND PLAN: 48yo F wtih PMH of a hernia repair 5 months ago presenting with abdominal pain and vomiting and found to have SBO 1. SBO- NGT in place with suction. clinically improved. cont NPO, IVF, pain and nausea control, serial abdominal exams. repeat AXR in AM. surgery on board 2. Leukocytosis- likely reactive. monitor for now 3. Elevated BP- seen on presentation, likely due to pain. now resolved. no indication for medications at this time 4. Obesity- BMI 31. lifestyle modifications 5. DVT ppx- SCD
[2018-08-05 12:15] VITALS: BMI 30.9
--- NOTE | 2018-08-05 13:38 | PN ---
Physical Exam: SUBJECTIVE: Patient seen and examined at bedside. Nausea ongoing, pain improved , no urinary difficulties, passing flatus by mid-morning. OBJECTIVE: Vital Signs Period Temp Pulse Resp BP Sys/Wray Pulse Ox Last 24 Hr 98.1 F-99 F 66-86 18-18 117-160/81-88 96-100 GENERAL: A&Ox3, NAD HEENT: NC/AT, PERRLA, EOMI, MMM, NGT in place NECK: Trachea midline, full range of motion, supple. LUNGS: CTA b/l HEART: RRR no m/r/g ABDOMEN: +bs, soft, non-distended, diffusely tender greatest in steph-umbilical regions EXTREMITIES: 2+ pulses, warm, well-perfused, no edema. 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 SKIN: Warm, dry, normal turgor, no rashes or lesions noted Laboratory Results - last 24 hr 08/05/18 08/05/18 08/05/18 00:50 00:50 01:00 WBC 14.1 H RBC 4.75 Hgb 14.7 Hct 43.0 D MCV 90.5 MCH 30.8 D MCHC 34.1 RDW 13.1 D Plt Count 267 MPV 10.0 Absolute Neuts (auto) 12.1 H Neutrophils % 85.8 H Lymphocytes % 8.4 Monocytes % 5.0 Eosinophils % 0.1 D Basophils % 0.7 D Nucleated RBC % 0 PT with INR INR PTT (Actin FS) Sodium 138 Potassium 4.6 Chloride 104 Carbon Dioxide 31 Anion Gap 3 L BUN 13 Creatinine 0.7 Creat Clearance w eGFR > 60 Random Glucose 123 H Calcium 9.1 Total Bilirubin 0.2 AST 13 L ALT 27 Alkaline Phosphatase 74 Total Protein 9.1 H Albumin 4.1 Lipase 133 Urine Color Yellow Urine Appearance Slcloudy Urine pH 5.0 Ur Specific Tyler 1.029 Urine Protein 1+ H Urine Glucose (UA) Negative Urine Ketones Negative Urine Blood Negative Urine Nitrite Negative Urine Bilirubin Negative Urine Urobilinogen 2.0 H Ur Leukocyte Esterase Negative Urine WBC (Auto) 1 Urine RBC (Auto) <1 Ur Epithelial Cells Rare Hyaline Casts 10 Granular Casts 1 Urine Mucus Few Urine HCG, Qual Negative Blood Type Antibody Screen 08/05/18 08/05/18 08/05/18 05:47 05:47 09:20 WBC RBC Hgb Hct MCV MCH MCHC RDW Plt Count MPV Absolute Neuts (auto) Neutrophils % Lymphocytes % Monocytes % Eosinophils % Basophils % Nucleated RBC % PT with INR 12.00 INR 1.02 PTT (Actin FS) 25.8 Sodium Potassium Chloride Carbon Dioxide Anion Gap BUN Creatinine Creat Clearance w eGFR Random Glucose Calcium Total Bilirubin AST ALT Alkaline Phosphatase Total Protein Albumin Lipase Urine Color Urine Appearance Urine pH Ur Specific Tyler Urine Protein Urine Glucose (UA) Urine Ketones Urine Blood Urine Nitrite Urine Bilirubin Urine Urobilinogen Ur Leukocyte Esterase Urine WBC (Auto) Urine RBC (Auto) Ur Epithelial Cells Hyaline Casts Granular Casts Urine Mucus Urine HCG, Qual Blood Type A POSITIVE A POSITIVE Antibody Screen Negative Active Medications Generic Name Dose Route Start Last Admin Trade Name Freq PRN Reason Stop Dose Admin Acetaminophen 1,000 mg 08/05/18 06:08 Ofirmev Injection - IVPB Q6H PRN FEVER Lactated Ringer's 1,000 mls @ 100 mls/hr 08/05/18 06:15 08/05/18 06:43 Lactated Ringers Solution IV 100 mls/hr ASDIR SCARLET Administration Ondansetron HCl 4 mg 08/05/18 06:08 08/05/18 06:15 Zofran Injection IVPUSH 4 mg Q8H PRN Administration NAUSEA ASSESSMENT/PLAN: 48 y/o F w/ PMHx incarcerated and strangulated hernia s/p bowel resection (2017), p/w sudden onset severe abd pain a/w NBNB vomiting and nausea. Admitted for SBO. #Small bowel obstruction -CT abdomen: minimally dilated small bowel on all 4 quadrants with transition point in the right mid abdomen at the side of an anastomotic suture in the small bowel, compatible with SBO -Leukocytosis, likely reactive -IV fluid hydration -NPO -NG tube on low suction -IV tylenol PRN for pain -IV Zofran PRN for nausea/vomiting -Surgery (Dr. Hogan) consulted -conservative management at this time, will monitor for improvement #FEN -IV LR @100cc/hr -Electrolytes wnl, routine bmp monitoring -NPO #PPx -DVT: SCDs, early ambulation -GI: not indicated #code -full #dispo -cont to monitor on med/surg Visit type - Emergency Visit Emergency Visit: Yes ED Registration Date: 08/05/18 Care time: The patient presented to the Emergency Department on the above date and was hospitalized for further evaluation of their emergent condition. - New Patient This patient is new to me today: Yes Date on this admission: 08/05/18 - Critical Care Critical Care patient: No
--- NOTE | 2018-08-05 14:01 | EKG ---
Test Reason : Blood Pressure : / mmHG Vent. Rate : 079 BPM Atrial Rate : 079 BPM P-R Int : 160 ms QRS Dur : 076 ms QT Int : 368 ms P-R-T Axes : 036 020 050 degrees QTc Int : 421 ms NORMAL SINUS RHYTHM NORMAL ECG NO PREVIOUS ECGS AVAILABLE Confirmed by ALEX WIN MD ([id number]) on 08/05/2018 2:00:52 PM Referred By: Confirmed By:ALEX WIN MD
[2018-08-05] MEDS: ACETAMINOPHEN 1000 MG/100 ML VIAL (NON FORMULARY) IVPB PRN (15:29)
[2018-08-06] MEDS: LACTATED RINGERS SOLUTION 1,000 ML IV SCH (02:10)
[2018-08-06] MEDS: ACETAMINOPHEN 1000 MG/100 ML VIAL (NON FORMULARY) IVPB PRN (02:10)
[2018-08-06 06:49] LABS: BASO % 0.4 % (0-2.0); HEMOGLOBIN 13.4 GM/dL (10.7-15.3); LYMPH % 31.4 % (8-40); MCH 31.1 pg (25.7-33.7); MCHC 34.5 g/dl (32.0-36.0); MEAN CELL VOLUME 90.1 fl (80-96); MEAN PLT VOLUME 10.6 fl (7.5-11.1); MONO % 8.7 % (3.8-10.2); NEUT % 58.5 % (42.8-82.8); PLATELET COUNT 219 K/MM3 (134-434); RBC 4.33 M/mm3 (3.60-5.2); RDW 12.9 % (11.6-15.6); WHITE BLOOD COUNT 8.3 K/mm3 (4.0-10.0)
[2018-08-06 08:10] LABS: ANION GAP 6 MMOL/L (8-16); BLOOD UREA NITROGEN 7 mg/dL (7-18); CALCIUM 8.7 mg/dL (8.5-10.1); CHLORIDE 105 mmol/L (98-107); CO2 28 mmol/L (21-32); CREATININE 0.6 mg/dL (0.55-1.3); GLUCOSE,RANDOM 96 mg/dL (74-106); MAGNESIUM 2.1 mg/dL (1.8-2.4); POTASSIUM 4.1 mmol/L (3.5-5.1); SODIUM 139 mmol/L (136-145)
[2018-08-06] MEDS ORDERED: ONDANSETRON 4 MG/2 ML VIAL IVPUSH PRN ×2 (08:16→14:57)
[2018-08-06] MEDS ORDERED: LACTATED RINGERS SOLUTION 1,000 ML IV SCH (08:30)
[2018-08-06 09:32] VITALS: TEMP 98.1
[2018-08-06] MEDS ORDERED: MIDAZOLAM HCL 2 MG/2 ML SINGLE DOSE VIAL ONE (11:05)
[2018-08-06] MEDS ORDERED: fentaNYL CITRATE 250 MCG/5 ML VIAL ONE (11:05)
--- NOTE | 2018-08-06 11:05 | PN ---
Teaching Attending Note Name of Resident: Gerardo Doyle ATTENDING PHYSICIAN STATEMENT I saw and evaluated the patient. I reviewed the resident's note and discussed the case with the resident. I agree with the resident's findings and plan as documented. SUBJECTIVE: OBJECTIVE: Last Vital Signs Temp Pulse Resp BP Pulse Ox 98.1 F 73 18 125/79 96 08/06/18 09:00 08/06/18 09:00 08/06/18 09:00 08/06/18 09:00 08/05/18 22:00 General NAD CV S1 S2 RRR no murmur/rub/gallop Lungs CTA B/L no wheezing/rales/rhonchi Abdomen soft NT/ND +BS dull to percussion ASSESSMENT AND PLAN: 48yo F wtih PMH of a hernia repair 5 months ago presenting with abdominal pain and vomiting and found to have SBO 1. SBO-resolved. diet advanced to clears yesterday and tolerated well. will place on regular diet post-operatively. surgery on board 2. R inguinal hernia- s/p elective repair 08/06. advance diet. post-op recommendations per surgery 2. Leukocytosis- likely reactive. resolved. no further work up 3. Elevated BP- seen on presentation, likely due to pain. now resolved. no indication for medications at this time 4. Obesity- BMI 31. lifestyle modifications 5. DVT ppx- SCD 6. d/c home once tolerating diet.
[2018-08-06] MEDS ORDERED: PROPOFOL 20 ML ONE ×4 (11:06)
[2018-08-06] MEDS ORDERED: LIDOCAINE HCL/PF 2% SDV 5ML VIAL ONE (11:11)
[2018-08-06] MEDS ORDERED: ROCURONIUM BROMIDE 50 MG/5 ML VIAL ONE (11:11)
[2018-08-06] MEDS ORDERED: SUCCINYLCHOLINE CHLORIDE 200 MG/10 ML VIAL ONE (11:12)
[2018-08-06] MEDS ORDERED: ceFAZolin SODIUM 1 GM VIAL ONE (11:43)
[2018-08-06] MEDS ORDERED: DEXAMETHASONE SOD PHOSPHATE 4 MG/1 ML VIAL ONE (11:48)
[2018-08-06] MEDS ORDERED: ONDANSETRON 4 MG/2 ML VIAL ONE (11:48)
[2018-08-06] MEDS ORDERED: ceFAZolin SODIUM 1 GM VIAL IVPB ONE (11:52)
[2018-08-06] MEDS ORDERED: NEOSTIGMINE METHYLSULFATE 0.5 MG/1 ML - 10 ML MDV ONE (12:13)
[2018-08-06] MEDS ORDERED: IBUPROFEN 600 MG TABLET (FP) PO PRN ×2 (12:58→14:57)
[2018-08-06] MEDS ORDERED: morphine SULFATE 4 MG/ML VIAL IVPUSH PRN ×2 (12:58→14:57)
[2018-08-06] MEDS ORDERED: ACETAMINOPHEN 325 MG TABLET (FP) PO PRN ×2 (12:58→14:57)
--- NOTE | 2018-08-06 13:09 | OP ---
Operative Note - Note: Operative Date: 08/06/18 Pre-Operative Diagnosis: right inguinal hernia Operation: right inguinal hernia repair with mesh Findings: right indirect inguinal hernia Implants: BARD polypropylene mesh 2"X4" flat mesh Post-Operative Diagnosis: Same as Pre-op Surgeon: Romario Hogan Dye Room Helper: Rupesh Rose Anesthesia: General Estimated Blood Loss (mls): 5 Fluid Volume Replaced (mls): 800 Operative Report Dictated: Yes
[2018-08-06 14:45] VITALS: BP 126/80; PULSE 80
--- NOTE | 2018-08-06 16:48 | DS ---
Physical Exam: SUBJECTIVE: Patient seen and examined at bedside. NGT removed, started on clears and tolerated yesterday, made NPO overnight for hernia surgery. Pain and nausea resolved. OBJECTIVE: Vital Signs Period Temp Pulse Resp BP Sys/Wray Pulse Ox Last 24 Hr 98.1 F-98.9 F 60-80 12-20 120-152/70-89 96-100 PHYSICAL EXAM GENERAL: A&Ox3, NAD HEENT: NC/AT, PERRLA, EOMI, MMM, NGT in place NECK: Trachea midline, full range of motion, supple. LUNGS: CTA b/l HEART: RRR no m/r/g ABDOMEN: +bs, soft, NT, ND EXTREMITIES: 2+ pulses, warm, well-perfused, no edema. 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 SKIN: Warm, dry, normal turgor, no rashes or lesions noted LABS Laboratory Results - last 24 hr 08/06/18 08/06/18 05:40 05:40 WBC 8.3 RBC 4.33 Hgb 13.4 Hct 39.0 MCV 90.1 MCH 31.1 MCHC 34.5 RDW 12.9 Plt Count 219 MPV 10.6 Absolute Neuts (auto) 4.8 Neutrophils % 58.5 D Lymphocytes % 31.4 D Monocytes % 8.7 Eosinophils % 1.0 D Basophils % 0.4 Nucleated RBC % 0 Sodium 139 Potassium 4.1 Chloride 105 Carbon Dioxide 28 Anion Gap 6 L BUN 7 Creatinine 0.6 Creat Clearance w eGFR > 60 Random Glucose 96 Calcium 8.7 Phosphorus 4.0 Magnesium 2.1 HOSPITAL COURSE: Date of Admission:08/05/18 Patient is a 48 y/o F w/ PMHx incarcerated and strangulated hernia s/p bowel resection (03/2018), p/w sudden onset severe abd pain a/w NBNB vomiting and nausea. Leukocytosis on presentation, otherwise hemodynamically stable w/ normal labs. CT a/p showed SBO and a fluid containing right inguinal hernia. Surgery was consulted. Patient was made NPO, placed on IVF and bowel rest, NGT placed. Pain and nausea resolved, Pt was started on clear diet within the day. With improving symptoms, was made NPO overnight for hernia repair the following day. Underwent successfully hernia repair and was restarted on full diet. She was discharged with instructions for pain control, surgical and primary follow up. Date of Discharge: 08/06/18 Minutes to complete discharge: 40 Discharge Summary Reason For Visit: SMALL BOWEL OBSTRUCTION Current Active Problems Abdominal pain (Acute) Obesity (BMI 30.0-34.9) (Acute) Small bowel obstruction (Acute) Condition: Improved - Instructions Diet, Activity, Other Instructions: Medical instructions: You were hospitalized for blockage of your intestines. This resolved with intravenous fluids and bowel rest. You were also found to have an inguinal hernia which was repaired surgically. Instructions from your surgeon are below. If you experience any new or worsening abdominal pain, vomiting, blood in your stool, chest pain, fever, chills, shortness of breath, or any other new or concerning symptoms, please return to the Emergency Department. Postoperative instructions: You had a right inguinal heria repair with mesh on by Dr. Romario Hogan of [facility]. Activity: Resume your usual activities gradually, but no heavy exertion or lifting more than 10-15 pounds for 4-6 weeks. Remove dressings 48 hours after surgery, if they are not already off. You may shower daily starting then, just pat the incision areas dry. No bath or swimming until skin incisions have healed. Karolina should not need to be recovered with any dressings, unless you have been told otherwise. Eat lightly at first, but advance to your usual diet as tolerated. Pain: For pain, you may use and alternate Tylenol (acetaminophen) 1-2 pills and/ or ibuprofen 200 mg (1-3 pills) every 6 hours each as needed; this means that you can take one OR the other at 3-hour intervals. If you are prescribed a Tylenol/narcotic combination for severe pain, use it instead of plain Tylenol as needed and switch back when your pain starts decreasing. Do not take more than 4000 mg of acetaminophen in a day. Take medications as prescribed or indicated on the labeling. Follow-up: Call Dr. Hogan' office at [phone] to make your postop appointment (Thursday in approximately 2 weeks after surgery as advised). Clinic is held in the [facility] on the first floor of [facility]. Call the office if you have: * increasing pain not responsive to pain medication * fever of 101F or higher * vomiting * unusual or increasing bleeding or drainage from wounds * increasing redness or swelling at wound sites * inability to urinate Also, see your primary medical doctor within 1-2 weeks. Referrals: Romario Hogan MD [Staff Physician] - Disposition: HOME - Home Medications Comprehensive Discharge Medication List: Ambulatory Orders NK [No Known Home Medication] 08/04/18 This patient is new to me today: No Emergency Visit: No Critical Care patient: No - Discharge Referral Referred to [facility] No
--- NOTE | 2018-08-07 13:30 | OP ---
DATE OF OPERATION: 08/06/2018 PREOPERATIVE DIAGNOSIS: Right inguinal hernia. POSTOPERATIVE DIAGNOSIS: Right inguinal hernia. PROCEDURE: Right inguinal hernia repair with mesh. ATTENDING SURGEON: Romario Hogan MD MANAGER MEDICAL AFFAIRS: Rupesh Rose MD ANESTHESIA TYPE: General anesthesia. ANESTHESIOLOGIST: dE Harrison IMPLANT: Bard polypropylene mesh 2 x 4 flat mesh, which was contoured and shaped. INTRAVENOUS FLUID ADMINISTERED: Crystalloid 800 mL. ESTIMATED BLOOD LOSS: 5 mL. BRIEF FINDINGS: Patient had a right indirect inguinal hernia adjacent to the round ligament. This was reduced and patch repaired. INDICATIONS: Patient is a 48-year-old female presenting with abdominal pain and vomiting. She is status post strangulated right inguinal hernia. She had segmental small bowel resection primary anastomosis, recovered well. Returned approximately 4 months later with symptoms suggestive of a recurrence. CT scan showed that there was an inguinal hernia that was persistent. It was smaller than previous, but we were unable to repair it with mesh at the time. She was counseled regarding risks, benefits and alternatives to surgical repair with mesh. She signed informed consent and was taken for the procedure. PROCEDURE: Patient was brought to the operating room. She was placed in the supine position on the operating table with the arms extended 90 degrees perpendicular to the body's midline axis. Anterior abdominal wall was clipped, prepped and draped in standard surgical fashion. A formal timeout was completed identifying the operative site. Patient received intravenous antibiotics prior to the start of surgery. She was induced with general anesthesia endotracheal intubated and she had SCDs present. With the timeout completed and all parties in agreement, we began with the standard inguinal ligament approach incision. It was incised with the 15 blade scalpel, deepened and widened through the subcutaneous tissues. Care was taken to dissect down through subcutaneous fat to the Emile fascia and then the external oblique fibers. They were identified and then opened with a scalpel, extended to the external ring with Metzenbaum scissors and proximally towards the flank. We then proceeded with isolation of the round ligament and structures towards the pubic tubercle. When they were encircled, the Yanna was placed and elevated into the field. It was clear at this point that there was an indirect hernia adjacent. The hernia sac itself was dissected away from the round ligament all the way to its base at the internal ring. The round ligament itself was transected to facilitate a patch repair. Once the hernia sac was completely from its base, its contents and it was reduced into the internal ring and then imbricated using a Vicryl 2-0 stitch at its base. Once complete, the floor of the hernia was repaired with Bard mesh 2 x 4 inch, which was cut and contoured to shape. It was transfixed to the pubic tubercle with 2-0 Prolene stitch and then along the inguinal ligament inferiorly and superiorly along the transversalis muscle. Once complete, it was laid flat and tucked under the remainder of the external oblique. The external oblique was then repaired over it in layers using a 2-0 Vicryl stitch from the flank towards the pubic tubercle and the external ring was then ablated in this closure. Once complete, the area was irrigated and the Emile fascia was repaired over it, followed by a layered closure deep dermals and then vidya at the skin. The patient was awoken from general anesthesia having tolerated the procedure well. She was given instructions to follow up in a period of 2 weeks. She was extubated in the operating room. All counts were correct prior to the end of surgery. MD BEATRICE Duggan/[id number]
== END 2018-08-06 20:00 | disposition home or self-care (01) | DRG 228 ==
LOC: JER 22:55 → JERBED 08-05 05:30 → J6S 08-05 08:43
PROVIDERS: ADMIT Internal Medicine; ATTEND Internal Medicine
PROC: 0YU50JZ Supplement Right Inguinal Region with Synthetic Substitute, Open Approach (ICD-10-PCS; principal; 2018-08-06 10:00)
DX: K40.30 Unilateral inguinal hernia, with obstruction, without gangrene, not specified as recurrent (principal); K56.609 Unspecified intestinal obstruction, unspecified as to partial versus complete obstruction; E66.9 Obesity, unspecified; Z68.31 Body mass index [BMI] 31.0-31.9, adult; I10 Essential (primary) hypertension; D72.829 Elevated white blood cell count, unspecified
CPT/HCPCS: 36415; 71045-TC-FY; 74177-TC; 80048; 80053; 81003; 81015; 83690; 83735; 84100; 84703; 85025; 85610; 85730; 86850; 86900; 86901; 93005; 93010; 94760; 99285-25; J0131; J7030

== ENCOUNTER 2018-10-07 12:01 | Emergency (ER) | payer OTHER ==
[2018-10-07 12:14] VITALS: BP 119/84; PULSE 95; TEMP 98.1; BMI 31.6
--- NOTE | 2018-10-07 14:07 | PDOC ---
History of Present Illness - General Chief Complaint: Pain, Acute Stated Complaint: RT KNEE PAIN Time Seen by Provider: 10/07/18 13:51 History Source: Patient Exam Limitations: No Limitations - History of Present Illness Initial Comments: 10/07/18 14:16 You with complaints of right knee pain since yesterday. Denies any changes in exercise, heavy lifting, or known trauma. 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 Has taken no medication for relief of same, has had intermittent swelling to bilateral knees but never evaluated. Occurred: reports: yesterday Severity: reports: mild, moderate Pain Location: reports: lower extremity Method of Injury: Yes: unknown Modifying Factors: improves with: None Loss of Consciousness: no loss of consciousness Associated Symptoms (Fall): denies symptoms Past History - Travel Traveled outside of the country in the last 30 days: No Close contact w/someone who was outside of country & ill: No - Past Medical History Allergies/Adverse Reactions: Allergies Allergy/AdvReac Type Severity Reaction Status Date / Time aspirin Allergy Severe Swelling Verified 10/07/18 12:12 Home Medications: Ambulatory Orders NK [No Known Home Medication] 08/04/18 COPD: No - Surgical History Abdominal Surgery: Yes - Immunization History Immunization Up to Date: Yes - Suicide/Smoking/Psychosocial Hx Smoking History: Never smoked Have you smoked in the past 12 months: No Hx Alcohol Use: No Drug/Substance Use Hx: No Review of Systems - Review of Systems Able to Perform ROS?: Yes Is the patient limited Turkish proficient: Yes Constitutional: Yes: See HPI. No: Symptoms Reported, Chills, Fever HEENTM: Yes: See HPI. No: Symptoms Reported Musculoskeletal: Yes: Symptoms Reported, See HPI, Joint Pain, Joint Swelling Integumentary: Yes: See HPI. No: Symptoms Reported, Bruising, Erythema All Other Systems: Reviewed and Negative *Physical Exam - Vital Signs Last Vital Signs Temp Pulse Resp BP Pulse Ox 98.1 F 95 H 16 119/84 97 10/07/18 12:12 10/07/18 12:12 10/07/18 12:12 10/07/18 12:12 10/07/18 12:12 - Physical Exam General Appearance: Yes: Nourished, Appropriately Dressed, Apparent Distress, Mild Distress HEENT: positive: LUCRECIA, Normal ENT Inspection, TMs Normal, Pharynx Normal Neck: positive: Supple Gastrointestinal/Abdominal: positive: Soft Extremity: positive: Normal Capillary Refill, Tender (pain reproduced along the medial aspect of right knee primarily at the area or insertion site. Has no crepitus or step-offs to patella or tibia. No posterior fossa tenderness, no obvious laxity. Neurovascular intact to foot) Integumentary: positive: Normal Color Neurologic: positive: rn advanced II-XII NML intact, Fully Oriented, Alert, Normal Response, Motor Strength 5/5 Progress Note - Progress Note Progress Note: Right knee sprain, no evidence of significant bony injury, primarily soft tissue in the medial aspect of knee therefore will treat conservatively *DC/Admit/Observation/Transfer Diagnosis at time of Disposition: Sprain of right knee Qualifiers: Encounter type: initial encounter Involved ligament of knee: medial collateral ligament Qualified Code(s): S83.411A - Sprain of medial collateral ligament of right knee, initial encounter - Discharge Dispostion Disposition: HOME Condition at time of disposition: Stable Decision to Admit order: No - Referrals - Patient Instructions Printed Discharge Instructions: DI for Knee Sprain Additional Instructions: Rest, ice to area on and off for 15 minutes 4-6 times a day Avoid heavy lifting or exercise until pain and swelling is resolved or until further directed Keep area highly elevated to reduce swelling Use splints/Rafat wrap as directed Followup with orthopedist in one to 2 days if not improving, if significantly improved may wait one week for followup with orthopedist May use ibuprofen 2 tabs every 6 hours as needed for pain - Post Discharge Activity Forms/Work/School Notes: Back to Work
== END 2018-10-07 14:19 | disposition home or self-care (01) ==
LOC: JERFT 12:01
DX: S83.411A Sprain of medial collateral ligament of right knee, initial encounter (principal); X58.XXXA Exposure to other specified factors, initial encounter; Y93.89 Activity, other specified; Y92.89 Other specified places as the place of occurrence of the external cause; Y99.8 Other external cause status
CPT/HCPCS: 99281-25

== ENCOUNTER 2019-07-19 18:09 | Emergency (ER) | payer OTHER ==
[2019-07-19 18:30] VITALS: BP 154/78; PULSE 65; TEMP 98.4; BMI 29.5
--- NOTE | 2019-07-19 18:31 | PDOC ---
Rapid Medical Evaluation Time Seen by Provider: 07/19/19 18:27 Medical Evaluation: Allergies Allergy/AdvReac Type Severity Reaction Status Date / Time aspirin Allergy Severe Swelling Verified 07/19/19 18:25 07/19/19 18:27 Pt presents for R flank pain for 4 days. She states the pain radiates in to her abdomen. Denies n/v and urinary symptoms Exam: TTP of the R mid abdomen Orders: labs, IV Pt to proceed to the ER for further evaluation Discharge Disposition - Diagnosis Flank pain - Referrals - Patient Instructions - Post Discharge Activity
[2019-07-19 19:21] LABS: BASO % 0.5 % (0-2.0); EOS % 1.3 % (0-4.5); HEMATOCRIT 39.3 % (32.4-45.2); HEMOGLOBIN 13.1 GM/dL (10.7-15.3); LYMPH % 26.9 % (8-40); MCH 29.9 pg (25.7-33.7); MCHC 33.3 g/dl (32.0-36.0); MEAN CELL VOLUME 89.9 fl (80-96); MEAN PLT VOLUME 10.1 fl (7.5-11.1); MONO % 8.3 % (3.8-10.2); PLATELET COUNT 216 K/MM3 (134-434); RBC 4.37 M/mm3 (3.60-5.2); WHITE BLOOD COUNT 8.1 K/mm3 (4.0-10.0)
[2019-07-19 19:26] LABS: PH,URINE 5.5 (5.0-8.0); URINE APPEARANCE CLEAR; URINE BILIRUBIN NEGATIVE (NEGATIVE); URINE COLOR YELLOW; URINE GLUCOSE (UA) NEGATIVE (NEGATIVE); URINE KETONE NEGATIVE (NEGATIVE); URINE LEUK ESTERASE NEGATIVE (NEGATIVE); URINE NITRITE NEGATIVE (NEGATIVE); URINE PROTEIN NEGATIVE (NEGATIVE); URINE UROBILINOGEN 0.2 mg/dL (0.2-1.0)
[2019-07-19 19:48] LABS: ALBUMIN 3.8 g/dl (3.4-5.0); BILIRUBIN,TOTAL 0.2 mg/dL (0.2-1); BLOOD UREA NITROGEN 15.2 mg/dL (7-18); CALCIUM 8.7 mg/dL (8.5-10.1); CREATININE 0.8 mg/dL (0.55-1.3); POTASSIUM 3.8 mmol/L (3.5-5.1); TOT PROT 7.3 g/dl (6.4-8.2)
--- NOTE | 2019-07-19 19:55 | PDOC ---
*Physical Exam - Vital Signs Last Vital Signs Temp Pulse Resp BP Pulse Ox 98.4 F 65 16 154/78 100 07/19/19 18:26 07/19/19 18:26 07/19/19 18:26 07/19/19 18:26 07/19/19 18:26 ED Treatment Course - LABORATORY CBC & Chemistry Diagram: 07/19/19 18:41 07/19/19 18:41 - ADDITIONAL ORDERS Additional order review: Laboratory Results 07/19/19 07/19/19 07/19/19 18:41 18:41 18:41 Sodium 139 Potassium 3.8 Chloride 105 Carbon Dioxide 29 Anion Gap 5 L BUN 15.2 Creatinine 0.8 Est GFR (CKD-EPI)AfAm 99.63 Est GFR (CKD-EPI)NonAf 85.96 Random Glucose 112 H Calcium 8.7 Total Bilirubin 0.2 AST 12 L ALT 23 Alkaline Phosphatase 78 Total Protein 7.3 Albumin 3.8 Urine Color Yellow Urine Appearance Clear Urine pH 5.5 Ur Specific [place] 1.021 Urine Protein Negative Urine Glucose (UA) Negative Urine Ketones Negative Urine Blood Negative Urine Nitrite Negative Urine Bilirubin Negative Urine Urobilinogen 0.2 Ur Leukocyte Esterase Negative Urine HCG, Qual Negative 07/19/19 18:41 RBC 4.37 MCV 89.9 MCHC 33.3 RDW 13.0 MPV 10.1 Neutrophils % 63.0 Lymphocytes % 26.9 Monocytes % 8.3 Eosinophils % 1.3 Basophils % 0.5 Medical Decision Making - Medical Decision Making 07/19/19 19:55 Patient seen by the advanced practice provider under my supervision. Ancillary testing reviewed as necessary. I agree with plan as outlined by the advanced practice provider. Discharge - Discharge Information Problems reviewed: Yes Clinical Impression/Diagnosis: Back pain Qualifiers: Back pain location: low back pain Chronicity: acute Back pain laterality: right Sciatica presence: without sciatica Qualified Code(s): M54.5 - Low back pain Disposition: HOME - Additional Discharge Information Prescriptions: Cyclobenzaprine HCl [Flexeril -] 10 mg PO TID PRN #14 tablet PRN Reason: Muscle Spasms Ibuprofen 600 mg PO QID PRN #20 tablet PRN Reason: Pain - Follow up/Referral Referrals: Gianni Vitale MD [Staff Physician] - - Patient Discharge Instructions Patient Printed Discharge Instructions: Low Back Pain Additional Instructions: Do light stretches Apply ice to the area for the first 24 hours. Then alternate with ice and heat after. Take ibuprofen every 6 hours as needed for pain. Take Flexeril as prescribed for muscle spasm. Flexeril can make you sleepy, do not drive or operate heavy machinery after taking the medication. Follow-up with an orthopedic doctor if symptoms persist. A referral was given to you today. Return to the emergency room for any worsening symptoms. - Post Discharge Activity Work/Back to School Note: Back to Work
--- NOTE | 2019-07-19 20:29 | PDOC ---
History of Present Illness - General Chief Complaint: Pain Stated Complaint: PAIN Time Seen by Provider: 07/19/19 18:27 History Source: Patient - History of Present Illness Initial Comments: 07/19/19 20:29 49 year old female with right lower back pain radiating to the right midabdomen. pain is worse with movement and deep breathing. denies chest pain NVD. 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 denies fall on injury. Took tylenol last night 07/19/19 20:31 07/19/19 20:34 Past History - Past Medical History Allergies/Adverse Reactions: Allergies Allergy/AdvReac Type Severity Reaction Status Date / Time aspirin Allergy Severe Swelling Verified 07/19/19 18:25 Home Medications: Ambulatory Orders Cyclobenzaprine HCl [Flexeril -] 10 mg PO TID PRN #14 tablet 07/19/19 Ibuprofen 600 mg PO QID PRN #20 tablet 07/19/19 COPD: No - Surgical History Abdominal Surgery: Yes - Immunization History Immunization Up to Date: Yes - Psycho Social/Smoking Cessation Hx Smoking History: Never smoked Have you smoked in the past 12 months: No Hx Alcohol Use: No Drug/Substance Use Hx: No Review of Systems - Review of Systems Able to Perform ROS?: Yes Is the patient limited Brazilian proficient: No Constitutional: No: Symptoms Reported, See HPI, Chills, Diaphoresis, Fever, Loss of Appetite, Malaise, Night Sweats, Weakness, Weight Stable, Unintentional Wgt. Loss, Unexplained wgt Loss, Other Musculoskeletal: Yes: Back Pain Integumentary: No: Symptoms Reported, See HPI, Bruising, Change in Color, Change in Hair/Nails, Dryness, Erythema, Flushing, Lesions, Lumps, Pallor, Pruritus, Rash, Sweating, Other *Physical Exam - Vital Signs Last Vital Signs Temp Pulse Resp BP Pulse Ox 98.4 F 65 16 154/78 100 07/19/19 18:26 07/19/19 18:26 07/19/19 18:26 07/19/19 18:26 07/19/19 18:26 - Physical Exam General Appearance: Yes: Appropriately Dressed Respiratory/Chest: positive: Lungs Clear, Normal Breath Sounds Cardiovascular: positive: Regular Rhythm, Regular Rate Gastrointestinal/Abdominal: positive: Normal Bowel Sounds, Soft, Other (no abdominal tenderness). negative: Tender Musculoskeletal: positive: Muscle Spasm (right lower lumbar area tenderness). negative: CVA Tenderness, CVA Tenderness (R) Extremity: positive: Normal Capillary Refill, Normal Inspection Integumentary: positive: Normal Color, Dry, Warm Neurologic: positive: Fully Oriented, Alert ED Treatment Course - LABORATORY CBC & Chemistry Diagram: 07/19/19 18:41 07/19/19 18:41 - ADDITIONAL ORDERS Additional order review: Laboratory Results 07/19/19 07/19/19 07/19/19 18:41 18:41 18:41 Sodium 139 Potassium 3.8 Chloride 105 Carbon Dioxide 29 Anion Gap 5 L BUN 15.2 Creatinine 0.8 Est GFR (CKD-EPI)AfAm 99.63 Est GFR (CKD-EPI)NonAf 85.96 Random Glucose 112 H Calcium 8.7 Total Bilirubin 0.2 AST 12 L ALT 23 Alkaline Phosphatase 78 Total Protein 7.3 Albumin 3.8 Urine Color Yellow Urine Appearance Clear Urine pH 5.5 Ur Specific Goff 1.021 Urine Protein Negative Urine Glucose (UA) Negative Urine Ketones Negative Urine Blood Negative Urine Nitrite Negative Urine Bilirubin Negative Urine Urobilinogen 0.2 Ur Leukocyte Esterase Negative Urine HCG, Qual Negative 07/19/19 18:41 RBC 4.37 MCV 89.9 MCHC 33.3 RDW 13.0 MPV 10.1 Neutrophils % 63.0 Lymphocytes % 26.9 Monocytes % 8.3 Eosinophils % 1.3 Basophils % 0.5 ED Progress Note - Progress Note Progress Note: 07/19/19 20:37 A: musculoskeletal pain \ P: toradol Medical Decision Making - Medical Decision Making 07/19/19 21:46 patient reports some pain relief, will d/ chome Discharge - Discharge Information Problems reviewed: Yes Clinical Impression/Diagnosis: Back pain Qualifiers: Back pain location: low back pain Chronicity: acute Back pain laterality: right Sciatica presence: without sciatica Qualified Code(s): M54.5 - Low back pain Disposition: HOME - Additional Discharge Information Prescriptions: Cyclobenzaprine HCl [Flexeril -] 10 mg PO TID PRN #14 tablet PRN Reason: Muscle Spasms Ibuprofen 600 mg PO QID PRN #20 tablet PRN Reason: Pain - Follow up/Referral Referrals: Gianni Vitale MD [Staff Physician] - - Patient Discharge Instructions Patient Printed Discharge Instructions: Low Back Pain Additional Instructions: Do light stretches Apply ice to the area for the first 24 hours. Then alternate with ice and heat after. Take ibuprofen every 6 hours as needed for pain. Take Flexeril as prescribed for muscle spasm. Flexeril can make you sleepy, do not drive or operate heavy machinery after taking the medication. Follow-up with an orthopedic doctor if symptoms persist. A referral was given to you today. Return to the emergency room for any worsening symptoms. - Post Discharge Activity Work/Back to School Note: Back to Work
[2019-07-19] MEDS ORDERED: KETOROLAC TROMETHAMINE 30 MG/1 ML VIAL IM ONE (20:35)
[2019-07-19] MEDS ORDERED: KETOROLAC TROMETHAMINE 30 MG/1 ML VIAL ONE (20:49)
== END 2019-07-19 22:00 | disposition home or self-care (01) ==
LOC: JER 18:09
PROC: 3E0233Z Introduction of Anti-inflammatory into Muscle, Percutaneous Approach (ICD-10-PCS; principal; 2019-07-19)
DX: M54.5 Low back pain (principal)
CPT/HCPCS: 36415; 80053; 81003; 84703; 85025; 87086; 96372; 99284-25

== ENCOUNTER 2020-07-12 08:21 | Inpatient (IN) | payer OTHER ==
[2020-07-12 08:26] VITALS: BMI 30.7
[2020-07-12] MEDS ORDERED: ONDANSETRON 4 MG/2 ML VIAL IVPUSH ONE (09:15)
[2020-07-12] MEDS ORDERED: FAMOTIDINE 20 MG/50 ML IVPB 20 MG/50 ML MG IVPB ONE ×2 (09:15→09:54)
[2020-07-12] MEDS ORDERED: SODIUM CHLORIDE 0.9% 500 ML INFUS.BAG IV ONE (09:15)
[2020-07-12] MEDS ORDERED: ONDANSETRON 4 MG/2 ML VIAL ONE (09:54)
[2020-07-12 10:44] LABS: BASO % 0.2 % (0-2.0); EOS % 0.1 % (0-4.5); HEMATOCRIT 44.1 % (32.4-45.2); HEMOGLOBIN 14.9 GM/dL (10.7-15.3); LYMPH % 10.1 % (8-40); MCH 30.1 pg (25.7-33.7); MCHC 33.7 g/dl (32.0-36.0); MEAN CELL VOLUME 89.4 fl (80-96); NEUT % 80.6 % (42.8-82.8); PLATELET COUNT 252 K/MM3 (134-434); RBC 4.93 M/mm3 (3.60-5.2); RDW 12.7 % (11.6-15.6); WHITE BLOOD COUNT 13.1 K/mm3 (4.0-10.0)
[2020-07-12 10:48] LABS: POTASSIUM 4.4 mmol/L (3.5-5.1)
[2020-07-12 10:50] LABS: CALCIUM 9.9 mg/dL (8.5-10.1)
[2020-07-12 10:51] LABS: ALBUMIN 4.2 g/dl (3.4-5.0); BLOOD UREA NITROGEN 12.6 mg/dL (7-18)
[2020-07-12 10:54] LABS: CREATININE 0.7 mg/dL (0.55-1.3)
[2020-07-12 10:55] LABS: BILIRUBIN,TOTAL 0.5 mg/dL (0.2-1)
[2020-07-12 14:07] LABS: URINE APPEARANCE CLEAR; URINE COLOR YELLOW
[2020-07-12 14:08] LABS: URINE BILIRUBIN NEGATIVE (NEGATIVE); URINE GLUCOSE (UA) NEGATIVE (NEGATIVE); URINE KETONE NEGATIVE (NEGATIVE)
[2020-07-12 14:09] LABS: HYALINE CASTS 0.38 /uL (0-3.1); URINE BACTERIA 248.4 /uL (0-1359); URINE LEUK ESTERASE NEGATIVE (NEGATIVE); URINE NITRITE NEGATIVE (NEGATIVE); URINE PROTEIN NEGATIVE (NEGATIVE); URINE RBC 11.3 /uL (0-23.9); URINE UROBILINOGEN 0.2 mg/dL (0.2-1.0); URINE WBC 15.6 /uL (0-25.8)
[2020-07-12] MEDS ORDERED: LACTATED RINGERS SOLUTION 1,000 ML/1,000 ML INFUS.BAG IV SCH (15:30)
[2020-07-12] MEDS ORDERED: ACETAMINOPHEN 1000 MG/100 ML VIAL (NON FORMULARY) IVPB PRN (15:30)
[2020-07-13 08:55] LABS: BASO % 0.6 % (0-2.0); EOS % 0.4 % (0-4.5); HEMATOCRIT 37.3 % (32.4-45.2); HEMOGLOBIN 12.6 GM/dL (10.7-15.3); LYMPH % 25.4 % (8-40); MCH 30.3 pg (25.7-33.7); MCHC 33.7 g/dl (32.0-36.0); MEAN CELL VOLUME 89.9 fl (80-96); MEAN PLT VOLUME 10.2 fl (7.5-11.1); NEUT % 63.6 % (42.8-82.8); PLATELET COUNT 178 K/MM3 (134-434); RBC 4.15 M/mm3 (3.60-5.2); RDW 12.7 % (11.6-15.6); WHITE BLOOD COUNT 7.3 K/mm3 (4.0-10.0)
[2020-07-13 09:25] LABS: ALBUMIN 3.3 g/dl (3.4-5.0); BLOOD UREA NITROGEN 12.6 mg/dL (7-18); CALCIUM 8.5 mg/dL (8.5-10.1); MAGNESIUM 2.1 mg/dL (1.8-2.4)
[2020-07-13 09:28] LABS: CREATININE 0.6 mg/dL (0.55-1.3); PHOSPHOROUS 3.5 mg/dL (2.5-4.9)
[2020-07-13 09:30] LABS: BILIRUBIN,TOTAL 0.9 mg/dL (0.2-1); TOT PROT 6.3 g/dl (6.4-8.2)
[2020-07-13] MEDS: ENOXAPARIN NA (PORCINE) 40 MG/0.4 ML DISP.SYRIN SQ SCH (10:45)
[2020-07-14] MEDS: ENOXAPARIN NA (PORCINE) 40 MG/0.4 ML DISP.SYRIN SQ SCH (09:52)
[2020-07-15] MEDS: ENOXAPARIN NA (PORCINE) 40 MG/0.4 ML DISP.SYRIN SQ SCH (09:40)
[2020-07-15 14:23] VITALS: BP 132/77; PULSE 72; TEMP 98.3
== END 2020-07-15 16:00 | disposition home or self-care (01) | DRG 247 ==
LOC: JER 08:21 → JERBED 14:07 → J6S 07-13 01:24
PROVIDERS: ADMIT Internal Medicine; ATTEND Student in an Organized Health Care Education/Training Program
DX: K56.600 Partial intestinal obstruction, unspecified as to cause (principal)
CPT/HCPCS: 36415; 74019-TC-FY; 74177-TC; 80053; 81003; 83605; 83690; 83735; 84100; 85025; 87086; 93005; 93010; 99285-25; C9803; Q9967; U0003

== ENCOUNTER 2023-05-10 13:02 | Emergency (ER) | payer OTHER ==
[2023-05-10 13:15] VITALS: BP 140/96; PULSE 74; RESP 18; TEMP 98.6; BMI 31.4
[2023-05-10] MEDS ORDERED: ACETAMINOPHEN 1000 MG/100 ML BAG IVPB ONE (14:52)
[2023-05-10] MEDS ORDERED: ACETAMINOPHEN INJECTION 100 ML IVPB ONE (14:56)
[2023-05-10 15:13] LABS: BASO % 0.3 % (0-2.0); HEMOGLOBIN 13.3 GM/dL (10.7-15.3); LYMPH % 22.7 % (8-40); MCH 28.9 pg (25.7-33.7); MCHC 32.6 g/dl (32.0-36.0); MEAN CELL VOLUME 88.8 fl (80-96); MEAN PLT VOLUME 9.1 fl (7.5-11.1); MONO % 8.7 % (3.8-10.2); NEUT % 67.3 % (42.8-82.8); PLATELET COUNT 222 10^3/uL (134-434); RBC 4.61 M/mm3 (3.60-5.2); WHITE BLOOD COUNT 7.5 K/mm3 (4.0-10.0)
[2023-05-10 15:19] LABS: INR 1.08 (0.83-1.09); PROTHROMBIN TIME (PATIENT) 12.5 SEC (9.7-13.0)
[2023-05-10 15:21] LABS: ACTIVATED PTT 30.8 SECONDS (25.2-36.5)
[2023-05-10 15:40] LABS: POTASSIUM 4.2 mmol/L (3.5-5.1)
[2023-05-10 15:42] LABS: ALBUMIN 3.9 g/dl (3.4-5.0); BLOOD UREA NITROGEN 13.4 mg/dL (7-18)
[2023-05-10 15:45] LABS: CREATININE 0.6 mg/dL (0.55-1.3)
[2023-05-10 15:47] LABS: BILIRUBIN,TOTAL 0.4 mg/dL (0.2-1); TOT PROT 7.3 g/dl (6.4-8.2)
== END 2023-05-10 19:23 | disposition home or self-care (01) ==
LOC: JER 13:02
PROC: 3E033NZ Introduction of Analgesics, Hypnotics, Sedatives into Peripheral Vein, Percutaneous Approach (ICD-10-PCS; principal; 2023-05-10)
DX: R10.33 Periumbilical pain (principal); K42.9 Umbilical hernia without obstruction or gangrene
CPT/HCPCS: 36415; 71045-TC-FY; 74177-TC; 80053; 84484; 84703; 85025; 85610; 85730; 86850; 86900; 86901; 93005; 93010; 99285-25

== ENCOUNTER 2023-10-19 14:53 | Emergency (ER) | payer OTHER ==
[2023-10-19 15:04] VITALS: RESP 18; BMI 33.0
[2023-10-19] MEDS ORDERED: ACETAMINOPHEN 325 MG TABLET (FP) ONE ×2 (16:02→20:22)
[2023-10-19] MEDS ORDERED: LIDOCAINE 5% TOPICAL PATCH ONE (16:04)
[2023-10-19] MEDS: LIDOCAINE 5% TOPICAL PATCH TP ONE (16:12)
[2023-10-19] MEDS: ACETAMINOPHEN 325 MG TABLET (FP) PO ONE ×2 (16:12→20:29)
[2023-10-19 17:15] LABS: BASO % 0.4 % (0-2.0); EOS % 0.7 % (0-4.5); HEMATOCRIT 41.2 % (32.4-45.2); HEMOGLOBIN 13.8 GM/dL (10.7-15.3); LYMPH % 25.6 % (8-40); MCH 29.7 pg (25.7-33.7); MCHC 33.5 g/dl (32.0-36.0); MEAN CELL VOLUME 88.6 fl (80-96); MEAN PLT VOLUME 9.7 fl (7.5-11.1); MONO % 6.9 % (3.8-10.2); NEUT % 66.4 % (42.8-82.8); PLATELET COUNT 227 10^3/uL (134-434); RBC 4.66 M/mm3 (3.60-5.2); RDW 12.9 % (11.6-15.6); WHITE BLOOD COUNT 7.6 K/mm3 (4.0-10.0)
[2023-10-19 17:21] LABS: INR 1.02 (0.83-1.09); PROTHROMBIN TIME (PATIENT) 11.5 SEC (9.7-13.0)
[2023-10-19 17:24] LABS: ACTIVATED PTT 31.4 SECONDS (25.2-36.5)
[2023-10-19 17:38] LABS: CALCIUM 9.5 mg/dL (8.5-10.1)
[2023-10-19 17:39] LABS: BLOOD UREA NITROGEN 12.5 mg/dL (7-18); MAGNESIUM 2.3 mg/dL (1.8-2.4)
[2023-10-19 17:42] LABS: CREATININE 0.6 mg/dL (0.55-1.3)
[2023-10-19 17:43] LABS: BILIRUBIN,TOTAL 0.4 mg/dL (0.2-1)
[2023-10-19 17:44] LABS: TOT PROT 7.6 g/dl (6.4-8.2)
[2023-10-19 17:46] LABS: PH,URINE 5.5 (5.0-8.0); URINE APPEARANCE CLEAR; URINE BILIRUBIN NEGATIVE (NEGATIVE); URINE COLOR YELLOW; URINE GLUCOSE (UA) NEGATIVE (NEGATIVE); URINE KETONE NEGATIVE (NEGATIVE); URINE LEUK ESTERASE NEGATIVE (NEGATIVE); URINE NITRITE NEGATIVE (NEGATIVE); URINE PROTEIN NEGATIVE (NEGATIVE); URINE UROBILINOGEN 0.2 mg/dL (0.2-1.0)
[2023-10-19 19:41] VITALS: BP 126/73; PULSE 66; TEMP 98.4
[2023-10-19] MEDS ORDERED: KETOROLAC TROMETHAMINE 15 MG/ML VIAL IVPUSH ONE (20:06)
[2023-10-19] MEDS ORDERED: CYCLOBENZAPRINE HCL 10 MG TABLET (FP) ONE (20:22)
[2023-10-19] MEDS: CYCLOBENZAPRINE HCL 5 MG TABLET PO SCH (20:28)
[2023-10-19] MEDS ORDERED: LIDOCAINE PATCH REMOVAL MC SCH (22:00)
== END 2023-10-19 20:36 | disposition home or self-care (01) ==
LOC: JER 14:53
DX: M54.50 Low back pain, unspecified (principal)
CPT/HCPCS: 36415; 74177-TC; 80053; 81003; 83735; 85025; 85610; 85730; 87086; 99285-25; Q9967